=== PATIENT | male | born 1960 | race Caucasian/White ===

== ENCOUNTER → 2020-08-03 12:47 | Outpatient (REF) | payer OTHER, SELFPAY ==
--- NOTE | 2020-08-03 12:51 | CA_ITS ---
Transthoracic Echocardiogram Patient (Last, First, Middle): Jaskaran Finn, Gender: Male Date of : 1960 Age: 59 Procedure Date: 08/03/2020 Procedure Type: Transthoracic Echocardiogram Location: OP Height: 182.88 cm Weight: 133.81 kg BSA: 2.51 m2 Heart Rate: bpm BP: 120 / 65 mmHg Special Delivery Messenger: JOHNNIE Howard MD: Scar Araiza [facility] Senior Bi Architect: Jc Brito MD Symptoms: R01.1 - Cardiac murmur, unspecified Study Quality: Fair ECG Rhythm: Sinus Conclusions: - Essentially normal study Findings Left Ventricle Normal left ventricular size, thickness, and systolic function. The visually estimated ejection fraction is between 65-70%. Diastolic function is normal for age. Right Ventricle Normal right ventricular cavity size and systolic function. Atria The left atrium is mildly dilated. There is lipomatous hypertrophy of the interatrial septum. Interatrial shunt cannot be excluded. The right atrium is normal in size. Aortic Valve Normal aortic valve structure and function. There is no aortic valve stenosis. There is no aortic valve regurgitation. Mitral Valve Normal mitral valve structure and function. There is trace mitral valve regurgitation. There is no mitral valve stenosis. Pulmonic Valve The pulmonic valve was not well visualized. Tricuspid Valve Likely normal tricuspid valve structure and function. There is trace tricuspid valve regurgitation. The right ventricular systolic pressure is normal. The right ventricular systolic pressure is 29 mmHg. Normal right atrial pressure. There is no evidence of pulmonary hypertension. Great Vessels All visible segments of the aorta are normal in size. The pulmonary artery was not well visualized. Venous The inferior vena cava is normal in size and collapses greater than 50% with inspiration. Pericardium/Pleural There is no evidence of pericardial effusion. Prior Study Comparison No prior study available for comparison. Measurements 2D Linear Measurements IVSd: 1.16 0.6-0.9/0.6-1.0 cm LVIDd: 5.42 3.9-5.3/4.2-5.9 cm LVIDd Index: 2.16 2.4-3.2/2.2-3.1 cm/m2 LVIDs: 3.44 2.0-3.6 cm LVPWd: 1.16 0.7-1.1 cm Ao Root: 3.50 2.1-3.5 cm LA Diam: 4.50 2.7-3.8/3.0-4.0 cm LAIDs Index: 1.79 1.5-2.3 cm/m2 LV Mass: 316.64 67-162/88-224 g LV Mass Index: 126.15 43-95/49-115 g/m2 LVOT Diam: 2.40 3.0+(-)1.3 cm 2D Systolic Function EF 4C: 68.00 >55% EF 2C: 68.60 >55% EF BiP: 68.10 >55% Mitral Valve MV Pk E: 0.77 MV PK A: 0.57 MV Decel Time: 434.00 E/A: 1.40 E'Lateral: 6.20 E'Medial: 7.94 E/E' Med: 9.70 E/E' Lat: 12.40 PHT: 127.00 MVA PHT: 1.73 Decel Arthur: 1.78 Aortic Valve AoV Pk Arun: 1.97 AoV Mn Arun: 1.26 AoV VTI: 0.42 AoV Pk Grad: 16.00 Aov Mn Grad: 7.00 CYNDI Cont.VTI: 3.54 LVOT LVOT Pk Arun: 1.35 LVOT Mn Arun: 0.95 LVOT VTI: 0.33 LVOT Pk Grad: 7.00 LVOT Mn Grad: 4.00 LVOT Diam: 2.40 LVOT Area: 4.52 Diastolic Function MV Pk E: 0.77 MV Pk A: 0.57 E/A: 1.40 E'Medial: 7.94 E/E' Med: 9.70 E' Laterial: 6.20 E/E' Lat: 12.40 Tricuspid Valve TR Pk Arun: 2.31 TR Pk Grad: 21.00 RA Press: 8.00 RVSP: 29.00 Great Vessels Aorta Ao Root-2D: 3.50 2.0-3.7 cm Ao Asc: 3.50 2.1-3.4 cm Ao Arch: 2.90 Updated in Other Vendor System with Status of Final Jc Brito MD electronically signed on 08/04/2020 5:30:09 PM with status of Final
== END ==
LOC: HO.CARD 12:47
PROVIDERS: Visit Provider Nurse Practitioner Family
DX: R01.1 Cardiac murmur, unspecified (principal)
CPT/HCPCS: 93306

== ENCOUNTER 2020-11-17 06:12 | Outpatient (REF) | payer OTHER, SELFPAY ==
[2020-11-17 11:53] LABS: Alanine Aminotransferase 40 U/L (0-40); Albumin Level 4.4 g/dL (3.5-5.0); Alkaline Phosphatase 57 U/L (39-117); Anion Gap 15 (12-20); Aspartate Amino Transferase 41 U/L (5-37); Bilirubin Total 0.6 mg/dL (0.0-1.0); Blood Urea Nitrogen 30 mg/dL (9-16); Calcium 9.4 mg/dL (8.4-10.2); Carbon Dioxide 26 mmol/L (22-29); Chloride 102 mmol/L (96-108); Cholesterol 153 mg/dL; Estimated Glomerular Filt Rate > 60; Glucose Fasting 259 mg/dL (60-99); HDL Cholesterol 30 mg/dL; LDL Cholesterol Calculated 44 mg/dl; Potassium 3.7 mmol/L (3.3-5.1); Sodium 139 mmol/L (135-145); Total Protein 7.7 g/dL (6.5-8.0); Triglycerides 399 mg/dL
[2020-11-17 12:15] LABS: TSH reflex Free T4 2.63 uIU/mL (0.32-4.0)
[2020-11-17 12:28] LABS: Creatinine Urine 162.88 mg/dL; Microalbum/Creatinine Ratio Ur 33.1 ug/mg cr
[2020-11-17 12:48] LABS: Prostate Specific Antigen Scr 0.29 ng/mL (<0.05-4.0)
== END 2020-11-17 06:13 | disposition home or self-care (01) ==
LOC: HO.HMGCLDS 06:12
PROVIDERS: PCP Nurse Practitioner Family; Visit Provider Nurse Practitioner Family
DX: Z00.00 Encounter for general adult medical examination without abnormal findings (principal); Z12.5 Encounter for screening for malignant neoplasm of prostate; E11.9 Type 2 diabetes mellitus without complications
CPT/HCPCS: 36415; 80053; 80061; 82043; 84153; 84443

== ENCOUNTER 2021-08-14 06:23 | Outpatient (REF) | payer SELFPAY ==
[2021-08-14 13:00] LABS: Total Volume 24 Hour Urine 2025 mL
[2021-08-14 13:02] LABS: Creatinine, 24Hr Urine 1.7 G/Day (1.0-2.0); Creatinine, mg/dL 84.52; Protein 24 Hr Urine 223 mg/Day (<150); Protein mg/dL 11 mg/dL
== END 2021-08-14 06:24 | disposition home or self-care (01) ==
LOC: HO.HMGCLNP 06:23
PROVIDERS: Visit Provider Internal Medicine Nephrology
DX: R80.9 Proteinuria, unspecified (principal); I10 Essential (primary) hypertension
CPT/HCPCS: 84156

== ENCOUNTER → 2022-10-10 08:37 | Outpatient (BNVA) | payer OTHER, SELFPAY | PROVIDERS: PCP Nurse Practitioner Family; Referring Provider Nurse Practitioner Family; Visit Provider Internal Medicine ==

== ENCOUNTER → 2022-10-11 07:51 | Outpatient (REF) | payer OTHER, SELFPAY ==
--- NOTE | 2022-10-11 07:56 | CA_ITS ---
Acquisition Time: 2022-10-11 08:01:50 Total Exercise Time: 00:03:40 Test Indications: Abnormal ECG BRADYCARDIA Medications: SEE H Protocol: LUZ Max HR: 083 BPM 52% of Pred: 158 BPM Max BP: 124/066 mmHG Max Work Load: 5.4 METS Exercise stress test with exercise 3 min 40 sec of Luz protocol, achieving 53% MPHR ( baseline heart rate 44b/min, 27% MPHR) with request to stop due to arm and leg fatigue, with mild sob, no chest discomfort, without arrythmia, with normotensive response to exercise, unable to fully assess chronotropic competence due to short exercise time, with nondiagnostic EKG for ischemia. Test reviewed with Dr Key Referred By: Jimmy Cano Overread By: NICKO RICHMOND
== END ==
LOC: HO.CARD 07:51
PROVIDERS: PCP Nurse Practitioner Family; Visit Provider Internal Medicine
DX: R00.1 Bradycardia, unspecified (principal)
CPT/HCPCS: 93017

== ENCOUNTER 2022-10-26 07:11 | Outpatient (REF) | payer OTHER, SELFPAY ==
[2022-10-26 11:08] LABS: MANUAL DIFF FLAG NO
[2022-10-26 11:12] LABS: Appearance Urine Clear; Color Urine Yellow; Glucose Urine UA 100 mg/dL (Negative); Leukocyte Esterase Urine Negative (Negative); Nitrite Urine Negative (Negative); Urine Blood Negative (Negative); Urine Ketones Negative (Negative); Urine Protein Negative (Neg-Trace)
[2022-10-26 11:14] LABS: Basophils Absolute Auto 0.1 X10*3/uL (0.0-0.2); Basophils Percent Auto 0.6 % (0-2); Eosinophils Absolute Auto 0.6 X10*3/uL (0.0-0.4); Eosinophils Percent Auto 6.5 % (0-4); Hematocrit 40.9 % (42.0-52.0); Imm Gran Abs Auto 0.02 X10*3/uL (0.00-0.03); Imm Gran Pct Auto 0.2 % (0.0-0.4); Lymphocytes Absolute Auto 3.1 X10*3/uL (1.2-4.9); Lymphocytes Percent Auto 32.2 % (20-40); Mean Corpuscular HGB Conc 34.2 g/dl (31.0-36.0); Mean Corpuscular Hemoglobin 32.2 pg (27.0-33.0); Mean Platelet Volume 11.2 fL (9.4-12.4); Monocytes Absolute Auto 0.7 X10*3/uL (0.1-1.2); Monocytes Percent Auto 7.2 % (2-11); Neutrophils Absolute Auto 5.1 x10*3/uL (2.0-8.3); Neutrophils Percent Auto 53.3 % (45-73); Platelet Count 271 X10*3/uL (160-400); Red Blood Count 4.35 X10*6/uL (4.60-5.80); Red Cell Distribution Width 12.6 % (11.0-16.0); White Blood Count 9.6 X10*3/uL (4.8-10.8)
[2022-10-26 11:34] LABS: Microalbum/Creatinine Ratio Ur 55.8 ug/mg cr
[2022-10-26 11:37] LABS: Alanine Aminotransferase 27 U/L (0-40); Albumin Level 4.1 g/dL (3.5-5.0); Alkaline Phosphatase 52 U/L (39-117); Anion Gap 13 (12-20); Aspartate Amino Transferase 25 U/L (5-37); Bilirubin Total 0.5 mg/dL (0.0-1.0); Blood Urea Nitrogen 19 mg/dL (9-16); Calcium 9.5 mg/dL (8.4-10.2); Carbon Dioxide 27 mmol/L (22-29); Chloride 104 mmol/L (96-108); Cholesterol 116 mg/dL; Estimated Glomerular Filt Rate > 60; Glucose Fasting 61 mg/dL (60-99); Glucose Random 61 mg/dL (60-115); HDL Cholesterol 28 mg/dL; LDL Cholesterol Calculated 30 mg/dl; Potassium 3.4 mmol/L (3.3-5.1); Sodium 141 mmol/L (135-145); Total Protein 6.9 g/dL (6.5-8.0); Triglycerides 293 mg/dL
[2022-10-26 11:54] LABS: TSH reflex Free T4 1.83 uIU/mL (0.32-4.0)
== END 2022-10-26 07:12 | disposition home or self-care (01) ==
LOC: HO.HMGCLDS 07:11
PROVIDERS: PCP Nurse Practitioner Family; Visit Provider Internal Medicine
DX: Z01.818 Encounter for other preprocedural examination (principal); E11.9 Type 2 diabetes mellitus without complications; R06.02 Shortness of breath
CPT/HCPCS: 36415; 80048; 80053; 80061; 81003; 82043; 84443; 85025

== ENCOUNTER → 2022-12-13 14:08 | Outpatient (BNVA) | payer OTHER, SELFPAY | PROVIDERS: PCP Nurse Practitioner Family; Visit Provider Nurse Practitioner Family ==

== ENCOUNTER 2023-02-19 07:49 | Outpatient (REF) | payer OTHER, SELFPAY ==
[2023-02-19 11:51] LABS: Appearance Urine Clear; Color Urine Yellow; Glucose Urine UA Negative (Negative); Leukocyte Esterase Urine Trace (Negative); Nitrite Urine Negative (Negative); PH 5.5 (5.0-9.0); Specific Gravity - Urine 1.015 (1.005-1.025); UMIC TRIGGER UACC YES; Urine Blood Negative (Negative); Urine Ketones Negative (Negative); Urine Protein Negative (Neg-Trace)
[2023-02-19 11:55] LABS: Bacteria Urine None Seen (None Seen); Hyaline Casts Urine 0-2 /LPF (0-2); RBC Urine 0-2 /HPF (0-2); Squamous Epithelial Cell Urine 0-2 /HPF (0-2); WBC Urine 0-5 /HPF (0-5)
[2023-02-19 12:45] LABS: Cholesterol 110 mg/dL (<200); HDL Cholesterol 35 mg/dL (>40); LDL Cholesterol Calculated 55 mg/dL (<100); Triglycerides 101 mg/dL (<150)
== END 2023-02-19 07:50 | disposition home or self-care (01) ==
LOC: HO.HMGCLDS 07:49
PROVIDERS: PCP Nurse Practitioner Family; Visit Provider Nurse Practitioner Family
DX: E78.1 Pure hyperglyceridemia (principal)
CPT/HCPCS: 36415; 80061; 81001

== ENCOUNTER 2023-05-21 08:17 | Outpatient (AMB) | payer OTHER, SELFPAY ==
--- NOTE | 2023-05-21 08:23 | MHC.PC.OV ---
Vital Signs 05/21/23 08:25 Weight 254 lb BP 120/72 Blood Pressure Location Rt brachial Position Sitting Pulse 53 Pulse Source Pulse Oximeter Pulse Oximetry (%) 97 Oxygen Delivery Method Room Air Intake Visit Reasons: 6 Month follow up DM Allergies codeine Allergy (Unknown, Verified 05/21/23 08:57) unknown naproxen Allergy (Unknown, Verified 05/21/23 08:57) rash, itching Medication List - Last Reconciled 05/21/23 by JANETH Vargas alcohol swabs (Alcohol Prep Pads) 1 pad topically; aspirin 81 mg PO DAILY atenolol-chlorthalidone 50-25 mg 1 tab PO DAILY atorvastatin 20 mg PO BEDTIME FreeStyle Lancets (lancets) TID testing NS FreeStyle Lite Meter (blood-glucose meter) Tid testing NS FreeStyle Lite Strips (blood sugar diagnostic) TId testing NS glipizide 10 mg PO BID Jardiance (empagliflozin) 10 mg PO DAILY NS lisinopril 40 mg PO DAILY nifedipine ER 60 mg PO BID omega-3 acid ethyl esters 2 caps PO BID trazodone 50 mg PO BEDTIME Tobacco use date assessed: 11/19/22 HPI 6 Month follow up DM HPI Details Pt is a diabetic, on an ASAD and a statin. A1C in office today is . Microalbumin is up to date. Denies polyuria, polydipsia, and neuropathy. Pt denies any signs and symptoms of hypoglycemia and does know how to correct it. Eye exam is up to date. Pt reports that his blood sugar in the morning is in the 70s-90s and at night is in the 130s. Will stop metformin. Due for PSA, will order. Denies dribbling with urination, weak stream, and frequent nocturia. Refuses pneumonia and flu vaccines. [facility] Medical History Morbid obesity Essential hypertension Surgical History Hx of cataract surgery History of carpal tunnel surgery H/O colonoscopy with polypectomy Family History Father Colon cancer Asthma Throat cancer Skin cancer Mother HTN (hypertension) Stroke Diabetes mellitus Sister No problems noted. Sister No problems noted. Social History Housing: House Alcohol intake: current Alcohol intake frequency: holidays/special occasions only Patient Tobacco Use Status: Current everyday Tobacco user Tobacco use type: Cigarette Cigarettes Per Day: 3 e-Cigarette/Vaping Use: Never Used Second Hand Smoke Exposure: No service: No 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al status: employed 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 [employer] 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al exposures/hazards: No Cognitive needs: No Hearing needs: No Vision needs: No Questionnaire Thrive Questionnaire Date Thrive assessed: 08/14/22 ERASMO-7 AMB Questionnaire ERASMO-7 Date ERASMO - 7 assessed: 08/14/22 Source: Developed by Drs. Ben Monroe, Paulina Carballo, Rm Broussard and colleagues, with an educational daryl from [employer]. Review of Systems Const Reports as per HPI Physical exam (Primary Care) Vital Signs: Last Vital Signs Pulse 53 05/21/23 08:25 BP 120/72 05/21/23 08:25 Pulse Ox 97 05/21/23 08:25 Oxygen Delivery Method Room Air 05/21/23 08:25 Tobacco/Smoking Status: Tobacco use Status Tobacco use date assessed 11/19/22 05/21/23 08:27 Patient Tobacco Use Status Current everyday Tobacco 05/21/23 08:27 Tobacco use type Cigarette 05/21/23 08:27 e-Cigarette/Vaping Use Never Used 05/21/23 08:27 Thrive Assessment: Date of Thrive Assessment Date Thrive assessed 08/14/22 05/21/23 08:27 Const General: cooperative Orientation/consciousness: patient oriented x3 Resp Effort & Inspection: normal respiratory effort Auscultation: clear to auscultation bilaterally Cardio Rate: regular rate Rhythm: regular rhythm Heart sounds: S1 normal heart sound present and S2 normal heart sound present Neuro General: patient oriented x3 Extrem Other: feet intact, onychomycosis noted, especially to big toe nails. + sensation Psych Appearance: grossly normal Mental Status: mental status grossly normal Speech and movement: Normal speech and movement present Affect: normal affect Attitude: cooperative Thought process: Normal thought process present Thought content: Normal thought content present Insight: Good insight present (Psych) Judgement: Good judgement present (Psych) Results AMB Hemoglobin A1c AMB Hemoglobin A1c 4.6 % Last Edit by ORLANDO Chery on 05/21/23 09:12 Assessment and Plan Assessment & Plan (1) Diabetes: Code(s): E11.9 - Type 2 diabetes mellitus without complications Plan: Labs ordered (2) Screening PSA (prostate specific antigen): Code(s): Z12.5 - Encounter for screening for malignant neoplasm of prostate Plan The patient agreed to the use of a medical record specialist for this encounter. Scribed for SANDEE Ta- by Carie Pantoja medical record specialist, on 05/21/2023 at 08:50 EST. Orders: Orders Prostate Specific Antigen Scr Today Z12.5 - Encounter for screening for malignant neoplasm of prostate TSH reflex Free T4 Today E11.9 - Type 2 diabetes mellitus without complications AMB Hemoglobin A1c Today Z13.9 - Encounter for screening, unspecified Complete Blood Count Auto Diff Today E11.9 - Type 2 diabetes mellitus without complications Comprehensive [place]. Panel Fast Today E11.9 - Type 2 diabetes mellitus without complications UA CC w/rflx Micro + Cult Today E11.9 - Type 2 diabetes mellitus without complications Lipid Panel Today E11.9 - Type 2 diabetes mellitus without complications Coding Level of Care Code Est Pt Level 3 (90326) Diagnoses Diabetes E11.9 Screening PSA (prostate specific antigen) Z12.5
[2023-05-21 08:25] VITALS: BP 120/72; PULSE 53; O2SAT 97
== END 2023-05-21 09:33 | disposition home or self-care (01) ==
PROVIDERS: PCP Nurse Practitioner Family; Visit Provider Nurse Practitioner Family
DX: E11.9 Type 2 diabetes mellitus without complications (principal); Z12.5 Encounter for screening for malignant neoplasm of prostate
CPT/HCPCS: 83036; 99213

== ENCOUNTER 2023-06-18 14:49 | Outpatient (AMB) | payer OTHER, SELFPAY ==
--- NOTE | 2023-06-18 15:13 | MHC.OFFVIS ---
Intake Vital Signs 06/18/23 15:14 Height 5 ft 11 in Weight 260 lb 2.327 oz BMI 36.3 BP 108/54 L Blood Pressure Location Lt brachial Position Sitting Pulse 52 Intake Visit Reasons: 6 month follow-up Intake Note: 6 month follow up Director Environmental Required: No Accompanied by: Self / Same As Patient Allergies codeine Allergy (Unknown, Verified 06/18/23 15:14) unknown naproxen Allergy (Unknown, Verified 06/18/23 15:14) rash, itching Medication List - Last Reconciled 06/18/23 by Jimmy Cano MD alcohol swabs (Alcohol Prep Pads) 1 pad topically; aspirin 81 mg PO DAILY atenolol-chlorthalidone 50-25 mg 1 tab PO DAILY atorvastatin 20 mg PO BEDTIME FreeStyle Lancets (lancets) TID testing NS FreeStyle Lite Meter (blood-glucose meter) Tid testing NS FreeStyle Lite Strips (blood sugar diagnostic) TId testing NS glipizide 10 mg PO BID Jardiance (empagliflozin) 10 mg PO DAILY NS lisinopril 40 mg PO DAILY nifedipine ER 60 mg PO BID omega-3 acid ethyl esters 2 caps PO BID trazodone 50 mg PO BEDTIME HPI HPI Comments History of Present Illness Details Jaskaran returns for follow-up. In the past, he was seen regarding bradycardia. He does not really have any clear-cut cardiac symptoms like angina or shortness of breath or in fact anything cardiac sounding. Around 2007 or so, it seems that he underwent some procedure and possibly ablation but there is no details available and he cannot remember. Otherwise, he has morbid obesity. He apparently weighed much more and was able to lose significant amount of weight by lifestyle changes. Has diabetes and hypertension. On appropriate medications. Also has obstructive sleep apnea on BiPAP. Within limits of his activity, he has got absolutely no cardiac symptoms like angina or shortness of breath or dizzy spells or syncopal episodes or in fact anything cardiac sounding at all. He states he is fairly active without any major limitations. He underwent a stress test and had chronotropic incompetence. After that, clonidine has been stopped. He does not see a major difference but he feels as though he is somewhat better off without clonidine. [facility] Medical History Morbid obesity Essential hypertension Surgical History Hx of cataract surgery History of carpal tunnel surgery H/O colonoscopy with polypectomy Family History Father Colon cancer Asthma Throat cancer Skin cancer Mother HTN (hypertension) Stroke Diabetes mellitus Sister No problems noted. Sister No problems noted. Social History Housing: House Alcohol intake: current Alcohol intake frequency: holidays/special occasions only Patient Tobacco Use Status: Current everyday Tobacco user Tobacco use type: Cigarette Cigarettes Per Day: 3 e-Cigarette/Vaping Use: Never Used Second Hand Smoke Exposure: No service: No 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al status: employed 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 [employer] 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al exposures/hazards: No Cognitive needs: No Hearing needs: No Vision needs: No Review of Systems Const Denies weakness ENT Denies dizziness Card Denies chest pain, Denies chest pain with activity, Denies syncope, Denies rapid heart rate, Denies pedal edema, Denies edema, Denies leg edema, Denies lightheadedness, Denies palpitations, Denies dyspnea, Denies dyspnea on exertion and Denies orthopnea Resp Denies cough, Denies dyspnea and Denies dyspnea on exertion GI Denies hematochezia and Denies change in stool character Musc Denies abnormal gait, Denies muscle cramps, Denies muscle weakness, Reports numbness, Denies radiating pain into limb and Denies tingling Neuro Denies abnormal gait, Denies dizziness, Denies syncope, Reports numbness, Denies tingling and Denies weakness Endo Denies palpitations Physical Exam Vital Signs: Last Vital Signs Pulse 52 06/18/23 15:14 BP 108/54 L 06/18/23 15:14 BMI result Body Mass Index 36.3 Const General: comfortable and no acute distress Orientation/consciousness: patient oriented x3 HEENT Other: Unremarkable Head: Yes normal to inspection Neck Neck: Yes normal visual inspection Chest Chest palpation & inspection: normal inspection of the chest Resp Auscultation: clear to auscultation bilaterally Cardio Palpation: normal PMI Heart sounds: S1 normal heart sound present, S2 normal heart sound present, no gallops, no murmurs and no rubs GI Palpation (GI): Soft to palpation Back/Spine/Pelvis Other: unremarkable Skin General skin exam: no rashes or lesions noted Neuro General: patient oriented x3 Extrem General: Yes normal to inspection Psych Mental Status: mental status grossly normal Assessment & Plan Assessment & Plan (1) Sinus bradycardia: Code(s): R00.1 - Bradycardia, unspecified (2) Diabetes: Code(s): E11.9 - Type 2 diabetes mellitus without complications (3) Essential hypertension: Code(s): I10 - Essential (primary) hypertension (4) JAVIER (obstructive sleep apnea): Code(s): G47.33 - Obstructive sleep apnea (adult) (pediatric) (5) Morbid obesity: Code(s): E66.01 - Morbid (severe) obesity due to excess calories (6) Coronary artery disease: Code(s): I25.10 - Atherosclerotic heart disease of [place] coronary artery without angina pectoris Plan Cardiac studies reviewed. EKG with sinus bradycardia, 44/Min; sinus arrhythmia, possible borderline SC prolongation, PAC. Echocardiogram with LVEF of 65-70% and otherwise unremarkable. In the stress test, he was able to exercise on Pankaj protocol for only 3 minutes and 40 seconds. Reached 53% of target heart rate and stopped due to fatigue. Subsequently, stopped clonidine. Coronary CT-essentially [id number] CAD and nothing hemodynamically significant. 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 Additionally, myocardial bridging in 1st and 3rd diagonal branches but no significant obstruction. Overall, he has got numerous cardiovascular risk factors and some CAD but nothing hemodynamically significant. Aggressive risk factor modification only including management of weight, diabetes, hypertension dyslipidemia. With regard to the bradycardia issue, he is off the clonidine. He is not reporting any symptoms at this time. We will schedule follow-up in 1 year. In the interim, to call with concerns. Coding Level of Care Code Est Pt Level 4 (68656) Diagnoses Sinus bradycardia R00.1 Diabetes E11.9 Essential hypertension I10 JAVIER (obstructive sleep apnea) G47.33 Morbid obesity E66.01 Coronary artery disease I25.10
[2023-06-18 15:14] VITALS: BP 108/54; PULSE 52; BMI 36.3
== END 2023-06-18 15:28 | disposition home or self-care (01) ==
PROVIDERS: PCP Nurse Practitioner Family; Visit Provider Internal Medicine
DX: R00.1 Bradycardia, unspecified (principal); E11.9 Type 2 diabetes mellitus without complications; I10 Essential (primary) hypertension; G47.33 Obstructive sleep apnea (adult) (pediatric); E66.01 Morbid (severe) obesity due to excess calories; I25.10 Atherosclerotic heart disease of native coronary artery without angina pectoris
CPT/HCPCS: 99214

== ENCOUNTER → 2023-06-18 14:49 | Outpatient (BNVA) | payer OTHER, SELFPAY | PROVIDERS: PCP Nurse Practitioner Family; Visit Provider Internal Medicine ==

== ENCOUNTER 2023-06-24 07:48 | Outpatient (AMB) | payer OTHER, SELFPAY ==
--- NOTE | 2023-06-24 07:18 | MHC.PC.OV ---
Intake Visit Reasons: Depression Allergies codeine Allergy (Unknown, Verified 06/18/23 15:14) unknown naproxen Allergy (Unknown, Verified 06/18/23 15:14) rash, itching Medication List - Last Reconciled 06/24/23 by Scar Araiza [facility] alcohol swabs (Alcohol Prep Pads) 1 pad topically; aspirin 81 mg PO DAILY atenolol-chlorthalidone 50-25 mg 1 tab PO DAILY atorvastatin 20 mg PO BEDTIME FreeStyle Lancets (lancets) TID testing NS FreeStyle Lite Meter (blood-glucose meter) Tid testing NS FreeStyle Lite Strips (blood sugar diagnostic) TId testing NS glipizide 10 mg PO BID Jardiance (empagliflozin) 10 mg PO DAILY NS lisinopril 40 mg PO DAILY nifedipine ER 60 mg PO BID omega-3 acid ethyl esters 2 caps PO BID sertraline 50 mg PO DAILY trazodone 50 mg PO BEDTIME Tobacco use date assessed: 11/19/22 HPI Depression HPI Details Pt c/o increased depression. He is interested in trying a medication for this. Will start sertraline 50mg. Will have team reach out to pt regarding a therapist. Denies any SI and HI. [facility] Medical History Morbid obesity Essential hypertension Surgical History Hx of cataract surgery History of carpal tunnel surgery H/O colonoscopy with polypectomy Family History Father Colon cancer Asthma Throat cancer Skin cancer Mother HTN (hypertension) Stroke Diabetes mellitus Sister No problems noted. Sister No problems noted. Social History Housing: House Alcohol intake: current Alcohol intake frequency: holidays/special occasions only Patient Tobacco Use Status: Current everyday Tobacco user Tobacco use type: Cigarette Cigarettes Per Day: 3 e-Cigarette/Vaping Use: Never Used Second Hand Smoke Exposure: No service: No 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al status: employed 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 [employer] 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al exposures/hazards: No Cognitive needs: No Hearing needs: No Vision needs: No Questionnaire Thrive Questionnaire Date Thrive assessed: 08/14/22 ERASMO-7 AMB Questionnaire ERASMO-7 Date ERASMO - 7 assessed: 08/14/22 Source: Developed by Drs. Ben Monroe, Paulina Carballo, Rm Broussard and colleagues, with an educational daryl from [employer] Review of Systems Const Reports as per HPI Physical exam (Primary Care) Tobacco/Smoking Status: Tobacco use Status Tobacco use date assessed 11/19/22 06/24/23 07:19 Patient Tobacco Use Status Current everyday Tobacco 06/24/23 07:19 Tobacco use type Cigarette 06/24/23 07:19 e-Cigarette/Vaping Use Never Used 06/24/23 07:19 Thrive Assessment: Date of Thrive Assessment Date Thrive assessed 08/14/22 06/24/23 07:19 Const General: cooperative Orientation/consciousness: patient oriented x3 Neuro General: patient oriented x3 Psych Appearance: grossly normal Mental Status: mental status grossly normal Speech and movement: Clear speech present Affect: normal affect Attitude: cooperative Thought process: Normal thought process present Thought content: Normal thought content present Insight: Good insight present (Psych) Judgement: Good judgement present (Psych) Telehealth Telehealth Location of provider rendering services: practice address Location of patient: address on file Patient Identification confirmed using: Name, : Yes Telehealth method: video Patient verbally consented to treatment: Yes Patient verbally consented to billing insurance company: Yes Patient informed of any privacy concerns related to visit: Yes Minutes spent on Phone/Video with Pt.: 10 Assessment and Plan Assessment & Plan (1) Depression: Code(s): F32.A - Depression, unspecified Plan: Starting sertraline 50mg Plan The patient agreed to the use of a medical receptionist medical assistant for this encounter. Scribed for JANETH Ta by Carie Pantoja medical receptionist medical assistant, on 06/24/2023 at 07:15 EST. Medications: New sertraline 50 mg PO DAILY 90 tabs 0RF Coding Level of Care Code Tele Est Pt Level 3 (15350) Diagnoses Depression F32.A
== END 2023-06-24 07:50 | disposition home or self-care (01) ==
LOC: HO.HMGC 07:48
PROVIDERS: PCP Nurse Practitioner Family; Visit Provider Nurse Practitioner Family
DX: F32.A Depression, unspecified (principal)
CPT/HCPCS: 99213

== ENCOUNTER 2023-09-19 06:20 | Outpatient (REF) | payer OTHER, SELFPAY ==
[2023-09-19 10:38] LABS: MANUAL DIFF FLAG NO
[2023-09-19 10:45] LABS: Basophils Absolute Auto 0.1 X10*3/uL (0.0-0.2); Basophils Percent Auto 0.8 % (0-2); Eosinophils Absolute Auto 0.7 X10*3/uL (0.0-0.4); Eosinophils Percent Auto 7.9 % (0-4); Hematocrit 43.5 % (42.0-52.0); Hemoglobin 14.8 g/dl (14.0-18.0); Imm Gran Abs Auto 0.01 X10*3/uL (0.00-0.03); Imm Gran Pct Auto 0.1 % (0.0-0.4); Lymphocytes Absolute Auto 2.4 X10*3/uL (1.2-4.9); Lymphocytes Percent Auto 27.6 % (20-40); Mean Corpuscular Hemoglobin 32.6 pg (27.0-33.0); Mean Corpuscular Volume 95.8 fL (80.0-98.0); Monocytes Absolute Auto 0.6 X10*3/uL (0.1-1.2); Neutrophils Absolute Auto 4.9 x10*3/uL (2.0-8.3); Neutrophils Percent Auto 56.6 % (45-73); Platelet Count 272 X10*3/uL (160-400); Red Blood Count 4.54 X10*6/uL (4.60-5.80); White Blood Count 8.6 X10*3/uL (4.8-10.8)
[2023-09-19 10:57] LABS: Appearance Urine Clear; Color Urine Yellow; Glucose Urine UA 250 mg/dL (Negative); Leukocyte Esterase Urine Negative (Negative); Nitrite Urine Negative (Negative); PH 5.5 (5.0-9.0); Specific Gravity - Urine 1.015 (1.005-1.025); Urine Blood Negative (Negative); Urine Ketones Negative (Negative); Urine Protein Negative (Neg-Trace)
[2023-09-19 11:15] LABS: Prostate Specific Antigen Scr 0.48 ng/mL (<0.05-4.0)
[2023-09-19 11:28] LABS: Alanine Aminotransferase 25 U/L (0-40); Albumin Level 4.1 g/dL (3.5-5.0); Alkaline Phosphatase 61 U/L (39-117); Anion Gap 12 (12-20); Aspartate Amino Transferase 24 U/L (5-37); Bilirubin Total 0.7 mg/dL (0.0-1.0); Blood Urea Nitrogen 19 mg/dL (9-16); Calcium 9.7 mg/dL (8.4-10.2); Carbon Dioxide 30 mmol/L (22-29); Chloride 105 mmol/L (96-108); Cholesterol 126 mg/dL (<200); Estimated Glomerular Filt Rate > 60; Glucose Fasting 100 mg/dL (60-99); HDL Cholesterol 36 mg/dL (>40); LDL Cholesterol Calculated 72 mg/dL (<100); Potassium 4.1 mmol/L (3.3-5.1); Sodium 143 mmol/L (135-145); Total Protein 7.5 g/dL (6.5-8.0); Triglycerides 92 mg/dL (<150)
[2023-09-19 11:51] LABS: TSH reflex Free T4 1.59 uIU/mL (0.32-4.0)
== END 2023-09-19 06:21 | disposition home or self-care (01) ==
LOC: HO.HMGCLDS 06:20
PROVIDERS: PCP Nurse Practitioner Family; Visit Provider Nurse Practitioner Family
DX: Z12.5 Encounter for screening for malignant neoplasm of prostate (principal); E11.9 Type 2 diabetes mellitus without complications
CPT/HCPCS: 36415; 80053; 80061; 81003; 84153; 84443; 85025

== ENCOUNTER 2023-09-23 07:41 | Outpatient (AMB) | payer OTHER, SELFPAY ==
--- NOTE | 2023-09-23 08:03 | A.OFFPC_ITS ---
Vital Signs 09/23/23 08:07 Height 5 ft 11 in Weight 252 lb BMI 35.1 BP 108/60 Blood Pressure Location Rt brachial Position Sitting Pulse 46 L Pulse Source Pulse Oximeter Pulse Oximetry (%) 95 Oxygen Delivery Method Room Air Intake Visit Reasons: Annual PE Intake Note: Patient here for physical exam. Has not had colonoscopy done. 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- alcohol swabs (Alcohol Prep Pads) 1 pad topically; aspirin 81 mg PO DAILY atenolol-chlorthalidone 50-25 mg 1 tab PO DAILY atorvastatin 20 mg PO BEDTIME FreeStyle Lancets (lancets) TID testing NS FreeStyle Lite Meter (blood-glucose meter) Tid testing NS FreeStyle Lite Strips (blood sugar diagnostic) TId testing NS glipizide 10 mg PO DAILY Jardiance (empagliflozin) 10 mg PO DAILY NS lisinopril 40 mg PO DAILY nifedipine ER 60 mg PO BID omega-3 acid ethyl esters 2 caps PO BID sertraline 50 mg PO DAILY trazodone 50 mg PO BEDTIME Tobacco use date assessed: 09/23/23 Dental Screening Dental Screen Date: 09/23/23 Did you have a dental visit in the last 12 months?: Yes Did you have a dental problem in the last 6 months where you did not have access to dental care?: No Was dental information given to patient?: Patient has dentist HPI Annual PE HPI Details Pt is here for a PE. Labs were already performed. Due for colon screen in February, will refer to GI. PSA is up to date. Denies dribbling with urination, weak stream, and frequent nocturia. Pt is a diabetic, on an ASAD and a statin, A1C in office today is 5.3. Due for microalbumin in the near future, will order. Deneis polyuria, polydipsia, and neuropathy. Pt denies any signs and symptoms of hypoglycemia and does know how to correct it. Will stop glipizide d ue to stable A1C. Pt has been working on his diet and losing weight. He reports feeling good. Pt has a hx of sleep apnea and uses a bipap machine. He would like to stop this because he has lost weight. Will refer for sleep study. Pt follows up with renal and cardiology. Refuses pneumonia vaccine. [facility] Medical History Morbid obesity Essential hypertension Surgical History Hx of cataract surgery History of carpal tunnel surgery H/O colonoscopy with polypectomy Family History Father Colon cancer Asthma Throat cancer Skin cancer Mother HTN (hypertension) Stroke Diabetes mellitus Sister No problems noted. Sister No problems noted. Social History Housing: House Alcohol intake: current Alcohol intake frequency: holidays/special occasions only Patient Tobacco Use Status: Current everyday Tobacco user Tobacco use type: Cigarette Cigarettes Per Day: 3 e-Cigarette/Vaping Use: Never Used Second Hand Smoke Exposure: No service: No 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al status: employed 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 [employer] 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al exposures/hazards: No Cognitive needs: No Hearing needs: No Vision needs: No Questionnaire PHQ-9 Over the last 2 weeks, how often have you been bothered by any of the following problems? 1. Little interest or pleasure in doing things: not at all 2. Feeling down, depressed, or hopeless: not at all 3. Trouble falling or staying asleep, or sleeping too much: not at all 4. Feeling tired or having little energy: not at all 5. Poor appetite or overeating: not at all 6. Feeling bad about yourself - or that you are a failure or have let yourself or your family down: not at all 7. Trouble concentrating on things, such as reading the newspaper or watching television: not at all 8. Moving or speaking so slowly that other people could have noticed. Or the opposite - being so fidgety or restless that you have been moving around a lot more than usual: not at all 9. Thoughts that you would be better off or of hurting yourself in some way: not at all Total score: 0 Depression Screening Interpretation: Negative Depression Screening Done: Yes 06689 - PHQ-9 Billing: Yes Source: Developed by Drs. Ben Monroe, Paulina Carballo, Rm Broussard and colleagues, with an educational daryl from [employer]. Thrive Questionnaire Date Thrive assessed: 09/23/23 I am a: Patient What is your living situation today?: I have a steady place to live Within the past 12 months, did the food you bought not last and you didn't have the money to get more?: Never true Within the past 12 months, did you worry whether your food would run out before you got money to buy more?: Never true Do you have trouble paying for medicines?: No Do you have trouble getting transportation to medical appointments?: No Do you have trouble paying your heating and electricity bill?: No Do you have trouble taking care of your child, family member or friend?: No Do you have trouble with day-to-day activities such as bathing, preparing meals, shopping, managing finances, etc.?: No Are you currently unemployed and looking for a job?: No Are you interested in more education?: No Currently or been in a relationship where the following occur: I choose not to answer this question THRIVE Score: 0 AUDIT C Alcohol Use Questionnaire (AUDIT-C) 1. How often do you have a drink containing alcohol?: Monthly or less 2. How many drinks containing alcohol do you have on a typical day when you are drinking?: 1 or 2 3. How often do you have six or more drinks on one occasion?: Never Total Score: 1 Score Reviewed/Action Taken: No ERASMO-7 AMB Questionnaire ERASMO-7 Date ERASMO - 7 assessed: 09/23/23 Feeling nervous, anxious, or on edge: 1 = Several days Not being able to stop or control worryin = Several days Worrying too much about different things: 1 = Several days Trouble relaxin = Several days Being so restless that it is hard to sit still: 1 = Several days Becoming easily annoyed or irritable: 1 = Several days Feeling afraid as if something awful might happen: 0 = Not at all Total ERASMO-7 score (0-4 normal; 5-9 mild; 10-14 moderate; 15-21 severe): 6 Source: Developed by Drs. Ben Monroe, Paulina Carballo, Rm Broussard and colleagues, with an educational daryl from [employer]. ERASMO-7 Assessment Billing ERASMO-7 Assessment Tool: ERASMO-7 Assessment 11776 Review of Systems Const Denies chills and Denies fever(s) Eyes Denies blurry vision ENT Denies vertigo, Denies dizziness and Denies sore throat Card Denies chest pain at rest, Denies chest pain with activity, Denies diaphoresis, Denies dyspnea and Denies dyspnea on exertion Resp Denies cough, Denies dyspnea, Denies dyspnea on exertion and Denies wheezing GI Denies abdominal pain, Denies melena, Denies hematochezia, Denies constipation, Denies diarrhea and Denies loose stools Denies hematuria Musc Denies numbness and Denies tingling Skin/Breast Denies lesions Neuro Denies vertigo, Denies dizziness, Denies numbness and Denies tingling Psych Denies anxiety, Denies depression, Denies homicidal ideation, Denies suicidal ideation and Denies other (substance abuse) Aller/Immun Denies wheezing Physical exam (Primary Care) Vital Signs: Last Vital Signs Pulse 46 L 09/23/23 08:07 BP 108/60 09/23/23 08:07 Pulse Ox 95 09/23/23 08:07 Oxygen Delivery Method Room Air 09/23/23 08:07 BMI result Body Mass Index 35.1 Tobacco/Smoking Status: Tobacco use Status Tobacco use date assessed 09/23/23 09/23/23 08:10 Patient Tobacco Use Status Current everyday Tobacco 09/23/23 08:03 Tobacco use type Cigarette 09/23/23 08:03 e-Cigarette/Vaping Use Never Used 09/23/23 08:03 PHQ-9: PHQ-9 Score PHQ-9: Total score 0 09/23/23 08:37 Depression Screening Interpretation: Negative Thrive Assessment: Date of Thrive Assessment Date Thrive assessed 09/23/23 09/23/23 08:26 Currently or been in a relationship where the following occur: I choose not to answer this question Const General: cooperative Nutritional Appearance: well nourished Orientation/consciousness: patient oriented x3 HENMT Head: Yes normal to inspection, Yes normocephalic and Yes atraumatic Ears: TM's normal bilaterally Eyes General: appearance normal, both eyes and all related structures Alignment and Position: alignment normal and position normal Neck Neck: Yes normal visual inspection and Yes no lymphadenopathy Thyroid: Thyroid normal Resp Effort & Inspection: normal respiratory effort Auscultation: clear to auscultation bilaterally Cardio Rate: regular rate Rhythm: regular rhythm Heart sounds: S1 normal heart sound present, S2 normal heart sound present and no murmurs GI Palpation (GI): Soft to palpation and nontender Auscultation: normal bowel sounds Male General Exam: Yes normal external exam Penis: normal penis Scrotum: scrotum normal, testes descended bilaterally and no inguinal hernias Testes: no testicular mass Skin Other: right cheek with darker slightly raised lesion Rashes: no rashes Neuro General: patient oriented x3, moves all extremities, no focal motor deficits and deep tendon reflexes 2+ bilaterally Romberg Test: Negative Extrem Other: bilat feet: + sensation with use of monofilament, feet intact Psych Appearance: grossly normal Mental Status: mental status grossly normal Speech and movement: Normal speech and movement present Affect: normal affect Attitude: cooperative Thought process: Normal thought process present Thought content: Normal thought content present Insight: Good insight present (Psych) Judgement: Good judgement present (Psych) Results AMB Hemoglobin A1c AMB Hemoglobin A1c 5.3 % Last Edit by ORLANDO Chery on 09/23/23 08 :25 Results Reviewed Results Reviewed: Laboratory Last Values Hgb A1c (Clinic) 5.3 % (4.0-6.0) 09/23/23 08:24 Assessment and Plan Assessment & Plan (1) Physical exam: Code(s): Z00.00 - Encounter for general adult medical examination without abnormal findin gs Plan: Labs already performed (2) Screening for colon cancer: Code(s): Z12.11 - Encounter for screening for malignant neoplasm of colon Plan: Referred to GI (3) Skin lesion: Code(s): L98.9 - Disorder of the skin and subcutaneous tissue, unspecified Plan: Referred to derm (4) JAVIER (obstructive sleep apnea): Code(s): G47.33 - Obstructive sleep apnea (adult) (pediatric) Plan: Referred for sleep study Plan The patient agreed to the use of a medical review coordinator for this encounter. Scribed for JANETH Ta by juliana Sandhu scribe, on 09/23/2023 at 08:25 EST. Orders: Orders UA CC w/rflx Micro + Cult Today Z00.00 - Encounter for general adult medical examination without abnormal findings Microalbumin, Random (w Creat) Today Z00.00 - Encounter for general adult medical examination without abnormal findings AMB Hemoglobin A1c Today Z13.9 - Encounter for screening, unspecified Referrals Gastroenterology Referral Z12.11 - Encounter for screening for malignant neoplasm of colon Dermatology Referral L98.9 - Disorder of the skin and subcutaneous tissue, unspecified Sleep Medicine Referral G47.33 - Obstructive sleep apnea (adult) (pediatric) Coding Level of Care Code Est Pt Prev Care 40-64y(29565) Diagnoses Physical exam Z00.00 Screening for colon cancer Z12.11 Skin lesion L98.9 JAVIER (obstructive sleep apnea) G47.33 Additional Codes ERASMO-7 Assessment Billing - ERASMO-7 Assessment Tool: ERASMO-7 Assessment 57392 ([id number])
[2023-09-23 08:07] VITALS: BP 108/60; PULSE 46; O2SAT 95; BMI 35.1
== END 2023-09-23 09:03 | disposition home or self-care (01) ==
PROVIDERS: PCP Nurse Practitioner Family; Visit Provider Nurse Practitioner Family
DX: Z00.00 Encounter for general adult medical examination without abnormal findings (principal); Z12.11 Encounter for screening for malignant neoplasm of colon; L98.9 Disorder of the skin and subcutaneous tissue, unspecified; G47.33 Obstructive sleep apnea (adult) (pediatric); Z13.9 Encounter for screening, unspecified
CPT/HCPCS: 83036; 99396

== ENCOUNTER 2023-09-23 08:46 | Outpatient (REF) | payer OTHER, SELFPAY ==
[2023-09-23 10:19] LABS: Appearance Urine Clear; Color Urine Yellow; Glucose Urine UA >=1000 mg/dL (Negative); Leukocyte Esterase Urine Negative (Negative); Nitrite Urine Negative (Negative); PH 6.5 (5.0-9.0); Specific Gravity - Urine 1.025 (1.005-1.025); UMIC TRIGGER UACC YES; Urine Blood Negative (Negative); Urine Ketones Negative (Negative); Urine Protein Negative (Neg-Trace)
[2023-09-23 10:23] LABS: Bacteria Urine None Seen (None Seen); Hyaline Casts Urine 0-2 /LPF (0-2); RBC Urine 0-2 /HPF (0-2); Squamous Epithelial Cell Urine 0-2 /HPF (0-2); WBC Urine 0-5 /HPF (0-5)
[2023-09-23 11:02] LABS: Creatinine Urine 130.06 mg/dL; Microalbum/Creatinine Ratio Ur 6.1 ug/mg cr (<30)
== END 2023-09-23 08:47 | disposition home or self-care (01) ==
LOC: HO.HMGCLDS 08:46
PROVIDERS: PCP Nurse Practitioner Family; Visit Provider Nurse Practitioner Family
DX: Z00.00 Encounter for general adult medical examination without abnormal findings (principal)
CPT/HCPCS: 81001; 82043; 82570

== ENCOUNTER 2023-12-31 08:59 | Outpatient (AMB) | payer OTHER, SELFPAY ==
--- NOTE | 2023-12-31 09:22 | A.OFFVIS_ITS ---
Vital Signs 12/31/23 09:23 Height 5 ft 11 in Weight 236 lb 5.369 oz BMI 33.0 BP 122/54 L Blood Pressure Location Rt brachial Position Sitting Pulse 66 Pulse Source Pulse Oximeter Pulse Oximetry (%) 97 Oxygen Delivery Method Room Air Intake Visit Reasons: Colonoscopy Screening Intake Note: Jaskaran presents in office today for a scheduled colo s/p consult CC; Pt reports previous hx of colo s/p approximately 5 years ago. Pt denies any new concerns or sx since their last s/p and confirms the recall nature of this s/p. 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 male here today for pre colonoscopy screening.? Patient was sent to us by his PCP.? Last colonoscopy about 5 years ago or so. Patient denies any gastrointestinal symptoms in the past or at present.? Patient's father was diagnosed with CRC. Patient himself has been going every 5 years for colonoscopies.? Denies history of difficulty with sedation or anesthesia in the past.? History of sleep apnea, using CPAP every night. Patient reports that he will be going to get re-evaluate that and possibly will not need the CPAP anymore. Patient reports that he lost 130 lb. On low-dose aspirin. Denies any history of cardiac, renal, pulmonary, or hepatic disease.?? No history of infectious? diseases like hepatitis A, B, C, HIV or tuberculosis.? PFSH Medical History Morbid obesity Essential hypertension Surgical History Hx of cataract surgery History of carpal tunnel surgery H/O colonoscopy with polypectomy Family History Father Colon cancer Asthma Throat cancer Skin cancer Mother HTN (hypertension) Stroke Diabetes mellitus Sister No problems noted. Sister No problems noted. Social History Housing: House Alcohol intake: current Alcohol intake frequency: holidays/special occasions only Patient Tobacco Use Status: Current everyday Tobacco user Tobacco use type: Cigarette Cigarettes Per Day: 3 e-Cigarette/Vaping Use: Never Used Second Hand Smoke Exposure: No service: No 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al status: employed 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 [employer] 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al exposures/hazards: No Cognitive needs: No Hearing needs: No Vision needs: No Review of Systems Const Denies weight gain and Denies weight loss ENT Reports no additional complaints, Denies dysphagia and Denies odynophagia Card Reports no additional complaints Resp Reports no additional complaints GI Denies abdominal pain, Denies belching, Denies melena, Denies bloating, Denies change in bowel habits, Denies dysphagia, Denies excessive flatus, Denies dyspepsia, Denies heartburn, Denies diarrhea, Denies loose stools, Denies nausea, Denies odynophagia and Denies vomiting Reports no additional complaints Musc Reports no additional complaints Neuro Reports no additional complaints Psych Reports no additional complaints Endo Reports no additional complaints Physical Exam Vital Signs: Last Vital Signs Pulse 66 12/31/23 09:23 BP 122/54 L 12/31/23 09:23 Pulse Ox 97 12/31/23 09:23 Oxygen Delivery Method Room Air 12/31/23 09:23 BMI result Body Mass Index 33.0 Const General: healthy appearing and no acute distress Nutritional Appearance: obese Orientation/consciousness: patient oriented x3 Resp Effort & Inspection: normal respiratory effort, able to speak in complete sentences, no tracheal deviation and symmetric chest movement Auscultation: clear to auscultation bilaterally Cardio Rate: regular rate GI Inspection: Yes normal to inspection, No distended and Yes obesity Palpation (GI): Soft to palpation, not firm, nontender and No hepatosplenomegaly present Auscultation: normal bowel sounds General: Yes no CVA tenderness Back/Spine/Pelvis Back: no CVA tenderness Skin General skin exam: elasticity normal, turgor normal and dry skin Neuro General: patient oriented x3 Psych Appearance: grossly normal Mental Status: mental status grossly normal Assessment & Plan Assessment & Plan (1) Screening for colon cancer: Code(s): Z12.11 - Encounter for screening for malignant neoplasm of colon Category: Medical Plan Patient denies any GI, cardiac or respiratory symptoms.? Denies any issues with anesthesia in the past.? History of sleep apnea, using CPAP at night. ? No history infectious diseases in the past or present.? Patient is on low-dose aspirin. Patient had cardiac treadmill stress test unable to complete due to shortness of breath and fatigue. Coronary CTA did not show any significant CAD. Patient reports that he lost 130 lb and is very active now. Denies any shortness of breath or chest pain with or without exertion. No family or personal history of colon cancer or polyps.? Patient denies melena, hematochezia, unintentional weight loss or ribbon like stools.? Discussed at length the pre-procedure,? prep, diet & medications as well as what to expect prior, during and after the procedure.?? Stressed the importance of good bowel prep.? Recommended the use of Vaseline or Calmoseptine OTC & baby wipes with bowel movements to promote comfort.? ?Patient verbalizes understanding and agrees to plan of care.? He was given the opportunity to ask questions and all questions answered.? We will see him after the procedure.? Medications: New polyethylene glycol 3350 (Miralax) As directed by gastroenterology department at [facility] 238 grams PO ONCE 238 grams 0RF Z12.11 - Encounter for screening for malignant neoplasm of colon bisacodyl (Dulcolax (bisacodyl)) take 4 tabs at noon the day before your colonoscopy 20 mg (4 x 5 mg) PO ONCE 1 day 4 tabs 0RF Z12.11 - Encounter for screening for malignant neoplasm of colon Coding Level of Care Code New Pt Level 3 (00685) Diagnoses Screening for colon cancer Z12.11 Time Spent (min) 40 Comment 30 minutes spent with patient and additional 10 minutes spent reviewing his records
[2023-12-31 09:23] VITALS: BP 122/54; PULSE 66; O2SAT 97; BMI 33.0
== END 2023-12-31 10:40 | disposition home or self-care (01) ==
PROVIDERS: PCP Nurse Practitioner Family; Visit Provider Nurse Practitioner Family
DX: Z12.11 Encounter for screening for malignant neoplasm of colon (principal); Z01.818 Encounter for other preprocedural examination
CPT/HCPCS: 99203

== ENCOUNTER → 2023-12-31 08:59 | Outpatient (BNVA) | payer OTHER, SELFPAY | PROVIDERS: PCP Nurse Practitioner Family; Visit Provider Nurse Practitioner Family ==

== ENCOUNTER 2024-01-21 15:56 | Outpatient (AMB) | payer OTHER, SELFPAY ==
--- NOTE | 2024-01-21 16:25 | HO.NEPHOV ---
Vital Signs 01/21/24 16:26 Height 5 ft 11 in Weight 235 lb 6 oz BMI 32.8 BP 130/50 L Blood Pressure Location Rt brachial Position Sitting Pulse 58 Pulse Source Pulse Oximeter Pulse Oximetry (%) 98 Oxygen Delivery Method Room Air Intake Visit Reasons: CKD/ Conf Lotus Notes Developer Required: No Accompanied by: Self / Same As Patient Allergies codeine Allergy (Unknown, Verified 01/21/24 16:27) unknown naproxen Allergy (Unknown, Verified 01/21/24 16:27) rash, itching HPI Comments Details: Jaskaran was seen in the office in follow-up of his history proteinuria and hypertension. He has lost tremendous amount of weight by diet. His blood pressure is at goal and he has no detectable protein. His serum creatinine is normal now. He does not have any orthostatic symptoms. He does not have any chest pain, shortness of breath, paroxysmal nocturnal dyspnea, orthopnea, pedal edema, hematuria, flank pain, palpitations. He does not take excessive sodium in the diet and avoids nonsteroidal anti-inflammatories. He maintains good hydration. He is on Jardiance. He feels well. [facility] Medical History Morbid obesity Essential hypertension Surgical History Hx of cataract surgery History of carpal tunnel surgery H/O colonoscopy with polypectomy Family History Father Colon cancer Asthma Throat cancer Skin cancer Mother HTN (hypertension) Stroke Diabetes mellitus Sister No problems noted. Sister No problems noted. Social History Housing: House Alcohol intake: current Alcohol intake frequency: holidays/special occasions only Patient Tobacco Use Status: Current everyday Tobacco user Tobacco use type: Cigarette Cigarettes Per Day: 3 e-Cigarette/Vaping Use: Never Used Second Hand Smoke Exposure: No service: No 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al status: employed 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 [employer] 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al exposures/hazards: No Cognitive needs: No Hearing needs: No Vision needs: No Review of Systems Const All systems reviewed & are unremarkable except as noted in HPI and below Physical Exam Vital Signs: Last Vital Signs Pulse 58 01/21/24 16:26 BP 130/50 L 01/21/24 16:26 Pulse Ox 98 01/21/24 16:26 Oxygen Delivery Method Room Air 01/21/24 16:26 BMI result Body Mass Index 32.8 Const General: comfortable and no acute distress Orientation/consciousness: patient oriented x3 HEENT Head: Yes normocephalic Mouth: Normal oral and palatal mucosa present Eyes EOM: EOMs intact bilaterally Neck Neck: Yes supple Resp Auscultation: clear to auscultation bilaterally Cardio Jugular venous distension: no JVD Rate: regular rate GI Palpation (GI): Soft to palpation Auscultation: normal bowel sounds General: Yes no CVA tenderness Back/Spine/Pelvis Back: no CVA tenderness Skin General skin exam: no rashes or lesions noted Neuro General: patient oriented x3 and moves all extremities Extrem General: Yes no pedal edema Results Reviewed Nephrology Results: Hgb 14.8 g/dl (14.0-18.0) 09/19/23 WBC 8.6 X10*3/uL (4.8-10.8) 09/19/23 Plt Count 272 X10*3/uL (160-400) 09/19/23 Sodium 143 mmol/L (135-145) 09/19/23 Potassium 4.1 mmol/L (3.3-5.1) 09/19/23 Chloride 105 mmol/L (96-108) 09/19/23 Carbon Dioxide 30 mmol/L (22-29) H 09/19/23 BUN 19 mg/dL (9-16) H 09/19/23 Creatinine 0.80 mg/dL (0.5-1.4) 09/19/23 Calcium 9.7 mg/dL (8.4-10.2) 09/19/23 Urine Protein Negative mg/dL (Neg-Trace) 09/23/23 Urine Creatinine 130.06 mg/dL 09/23/23 Assessment & Plan Assessment & Plan (1) Essential hypertension: Code(s): I10 - Essential (primary) hypertension Category: Medical Plan Jaskaran has hypertension at goal. He has lost significant amount of weight. His blood sugar is well controlled. He is tolerating current antihypertensive medications. He is on Jardiance. He maintains good hydration and avoid nonsteroidal anti-inflammatories. His serum potassium is normal on ASAD inhibitor. He avoids excessive sodium in the diet. I reiterated that if he continues to lose weight. I shall continue to work with him cut back on his antihypertensive medications. He has no protein in the urine. He is not known to have any retinopathy or LVH. I would not make any medication changes today. All these have been discussed in detail. Answered all questions. Follow-up appointment given. Orders: Orders Creatinine 6 Months I10 - Essential (primary) hypertension Blood Urea Nitrogen 6 Months I10 - Essential (primary) hypertension Electrolytes 6 Months I10 - Essential (primary) hypertension Protein Creatinine Ratio, Ur 6 Months I10 - Essential (primary) hypertension Coding Level of Care Code Est Pt Level 4 (39349) Diagnoses Essential hypertension I10
[2024-01-21 16:26] VITALS: BP 130/50; PULSE 58; O2SAT 98; BMI 32.8
== END 2024-01-21 16:54 | disposition home or self-care (01) ==
PROVIDERS: PCP Nurse Practitioner Family; Visit Provider Internal Medicine Nephrology
DX: I10 Essential (primary) hypertension (principal)
CPT/HCPCS: 99214

== ENCOUNTER → 2024-01-21 15:56 | Outpatient (BNVA) | payer OTHER, SELFPAY | PROVIDERS: PCP Nurse Practitioner Family; Visit Provider Internal Medicine Nephrology ==

== ENCOUNTER 2024-02-24 06:59 | Outpatient (REF) | payer OTHER, SELFPAY ==
[2024-02-24 10:16] LABS: Appearance Urine Cloudy; Color Urine Dark Yellow; Glucose Urine UA >=1000 mg/dL (Negative); Leukocyte Esterase Urine Trace (Negative); Nitrite Urine Negative (Negative); PH 5.5 (5.0-9.0); Specific Gravity - Urine 1.025 (1.005-1.025); UMIC TRIGGER UACC YES; Urine Blood Negative (Negative); Urine Ketones Trace mg/dL (Negative); Urine Protein Trace mg/dL (Neg-Trace)
[2024-02-24 10:33] LABS: Bacteria Urine None Seen (None Seen); Calcium Oxalate Crystals Urine Present; Hyaline Casts Urine 0-2 /LPF (0-2); RBC Urine 0-2 /HPF (0-2); Squamous Epithelial Cell Urine 0-2 /HPF (0-2); WBC Urine 0-5 /HPF (0-5)
== END 2024-02-24 07:00 | disposition home or self-care (01) ==
LOC: HO.HMGCLDS 06:59
PROVIDERS: PCP Nurse Practitioner Family; Visit Provider Nurse Practitioner Family
DX: Z00.00 Encounter for general adult medical examination without abnormal findings (principal)
CPT/HCPCS: 81001

== ENCOUNTER 2024-03-08 07:43 | Outpatient (AMB) | payer OTHER, SELFPAY ==
[2024-03-08 07:49] VITALS: BP 116/60; PULSE 67; O2SAT 98; BMI 33.3
--- NOTE | 2024-03-08 07:49 | MHC.PC.OV ---
Vital Signs 03/08/24 07:49 Height 5 ft 11 in Weight 239 lb BMI 33.3 BP 116/60 Blood Pressure Location Lt brachial Position Sitting Pulse 67 Pulse Source Pulse Oximeter Pulse Oximetry (%) 98 Oxygen Delivery Method Room Air Intake Visit Reasons: 6M F/U Intake Note: Pt is here today for his 6mo. f/u Allergies codeine Allergy (Unknown, Verified 03/08/24 08:36) unknown naproxen Allergy (Unknown, Verified 03/08/24 08:36) rash, itching Medication List - Last Reconciled 03/08/24 by JANETH Vargas alcohol swabs (Alcohol Prep Pads) 1 pad topically; aspirin 81 mg PO DAILY atorvastatin 20 mg PO BEDTIME chlorthalidone 25 mg PO DAILY FreeStyle Lancets (lancets) TID testing NS FreeStyle Lite Meter (blood-glucose meter) Tid testing NS FreeStyle Lite Strips (blood sugar diagnostic) TId testing NS Jardiance (empagliflozin) 10 mg PO DAILY NS lisinopril 40 mg PO DAILY nifedipine ER 60 mg PO BID omega-3 acid ethyl esters 2 caps PO BID sertraline 50 mg PO DAILY trazodone 50 mg PO BEDTIME Tobacco use date assessed: 03/08/24 Dental Screening Dental Screen Date: 03/08/24 Did you have a dental visit in the last 12 months?: Yes Did you have a dental problem in the last 6 months where you did not have access to dental care?: No Was dental information given to patient?: Patient has dentist HPI 6M F/U HPI Details Pt is a diabetic, on an ASAD and a statin. A1C in office today is 5.7. Microalbumin is up to date. Denies polyuria, polydipsia, and neuropathy. Pt denies any signs and symptoms of hypoglycemia and does know how to correct it. Eye exam is scheduled. Pt follows up with nephrology, cardiology, and derm. Refuses pneumonia vaccines at this current time. Pt c/o right knee pain. He does have slight swelling as well. Will order XR. PFSH Medical History Morbid obesity Essential hypertension Surgical History Hx of cataract surgery History of carpal tunnel surgery H/O colonoscopy with polypectomy Family History Father Colon cancer Asthma Throat cancer Skin cancer Mother HTN (hypertension) Stroke Diabetes mellitus Sister No problems noted. Sister No problems noted. Social History Housing: House Alcohol intake: current Alcohol intake frequency: holidays/special occasions only Patient Tobacco Use Status: Current everyday Tobacco user Tobacco use type: Cigarette Cigarettes Per Day: 3 e-Cigarette/Vaping Use: Never Used Second Hand Smoke Exposure: No service: No 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al status: employed 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 [employer] 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al exposures/hazards: No Cognitive needs: No Hearing needs: No Vision needs: No Questionnaire PHQ-9 Over the last 2 weeks, how often have you been bothered by any of the following problems? 1. Little interest or pleasure in doing things: not at all 2. Feeling down, depressed, or hopeless: not at all 3. Trouble falling or staying asleep, or sleeping too much: not at all 4. Feeling tired or having little energy: not at all 5. Poor appetite or overeating: not at all 6. Feeling bad about yourself - or that you are a failure or have let yourself or your family down: not at all 7. Trouble concentrating on things, such as reading the newspaper or watching television: not at all 8. Moving or speaking so slowly that other people could have noticed. Or the opposite - being so fidgety or restless that you have been moving around a lot more than usual: not at all 9. Thoughts that you would be better off or of hurting yourself in some way: not at all Total score: 0 Depression Screening Interpretation: Negative Depression Screening Done: Yes [id number] - PHQ-9 Billing: Yes Source: Developed by Drs. Ben Monroe, Paulina Carballo, Rm Broussard and colleagues, with an educational daryl from [employer]. Thrive Questionnaire Date Thrive assessed: 09/23/23 I am a: Patient What is your living situation today?: I have a steady place to live Within the past 12 months, did the food you bought not last and you didn't have the money to get more?: Never true Within the past 12 months, did you worry whether your food would run out before you got money to buy more?: Never true Do you have trouble paying for medicines?: No Do you have trouble getting transportation to medical appointments?: No Do you have trouble paying your heating and electricity bill?: No Do you have trouble taking care of your child, family member or friend?: No Do you have trouble with day-to-day activities such as bathing, preparing meals, shopping, managing finances, etc.?: I choose not to answer this question Are you interested in more education?: No Please select the resources that you would like help with: None Currently or been in a relationship where the following occur: No concerns reported THRIVE Score: 0 AUDIT C Alcohol Use Questionnaire (AUDIT-C) 1. How often do you have a drink containing alcohol?: 2-4 times a month 2. How many drinks containing alcohol do you have on a typical day when you are drinking?: 1 or 2 3. How often do you have six or more drinks on one occasion?: Never Total Score: 2 ERASMO-7 AMB Questionnaire ERASMO-7 Date ERASMO - 7 assessed: 09/23/23 Feeling nervous, anxious, or on edge: 0 = Not at all Not being able to stop or control worryin = Not at all Worrying too much about different things: 0 = Not at all Trouble relaxin = Not at all Source: Developed by Drs. Ben Monroe, Paulina Carballo, Rm Broussard and colleagues, with an educational daryl from [employer]. ERASMO-7 Assessment Billing ERASMO-7 Assessment Tool: pt declined-do not bill Review of Systems Const Reports as per HPI Physical exam (Primary Care) Vital Signs: Last Vital Signs Pulse 67 03/08/24 07:49 BP 116/60 03/08/24 07:49 Pulse Ox 98 03/08/24 07:49 Oxygen Delivery Method Room Air 03/08/24 07:49 BMI result Body Mass Index 33.3 Tobacco/Smoking Status: Tobacco use Status Tobacco use date assessed 03/08/24 03/08/24 07:50 Patient Tobacco Use Status Current everyday Tobacco 03/08/24 07:50 Tobacco use type Cigarette 03/08/24 07:50 e-Cigarette/Vaping Use Never Used 03/08/24 07:50 Depression Screening Interpretation: Negative Thrive Assessment: Date of Thrive Assessment Date Thrive assessed 09/23/23 03/08/24 07:50 Currently or been in a relationship where the following occur: No concerns reported Const General: cooperative Nutritional Appearance: obese Orientation/consciousness: patient oriented x3 Resp Effort & Inspection: normal respiratory effort Auscultation: clear to auscultation bilaterally Cardio Rate: regular rate Rhythm: regular rhythm Heart sounds: S1 normal heart sound present, S2 normal heart sound present and Murmur heart sound present systolic Neuro General: patient oriented x3 Extrem Other: bilat feet: + sensation with use of monofilament, feet intact, onychomycosis noted bilat, right knee: slight swelling, extensive crepitus noted, - mcmurrays, - lachmans Right lower extremity: edema (trace) Left lower extremity: edema (trace) Psych Appearance: grossly normal Mental Status: mental status grossly normal Speech and movement: Normal speech and movement present Affect: normal affect Attitude: cooperative Thought process: Normal thought process present Thought content: Normal thought content present Insight: Good insight present (Psych) Judgement: Good judgement present (Psych) Results AMB Hemoglobin A1c AMB Hemoglobin A1c 5.7 % Last Edit by Lisbeth Alejandra CMA on 03/08/24 08:24 Assessment and Plan Assessment & Plan (1) Right knee pain: Code(s): M25.561 - Pain in right knee Plan: XR ordered (2) Diabetes: Code(s): E11.9 - Type 2 diabetes mellitus without complications Plan: Labs ordered Plan The patient agreed to the use of a medical imaging director for this encounter. Scribed for JANETH Ta by Carie Pantoja medical imaging director, on 03/08/2024 at 08:15 EST. Orders: Orders AMB Hemoglobin A1c Today E11.9 - Type 2 diabetes mellitus without complications Comprehensive [place]. Panel Fast Today E11.9 - Type 2 diabetes mellitus without complications UA CC w/rflx Micro + Cult Today E11.9 - Type 2 diabetes mellitus without complications Lipid Panel Today E11.9 - Type 2 diabetes mellitus without complications XR knee RT 3V Today M25.561 - Pain in right knee Complete Blood Count Auto Diff Today E11.9 - Type 2 diabetes mellitus without complications TSH reflex Free T4 Today E11.9 - Type 2 diabetes mellitus without complications Medications: Refilled atorvastatin 20 mg PO BEDTIME 90 tabs 1RF Coding Level of Care Code Est Pt Level 3 (86423) Diagnoses Right knee pain M25.561 Diabetes E11.9
== END 2024-03-08 08:34 | disposition home or self-care (01) ==
PROVIDERS: PCP Nurse Practitioner Family; Visit Provider Nurse Practitioner Family
DX: M25.561 Pain in right knee (principal); E11.9 Type 2 diabetes mellitus without complications

== ENCOUNTER → 2024-03-08 07:43 | Outpatient (BNVA) | payer OTHER, SELFPAY | PROVIDERS: PCP Nurse Practitioner Family; Visit Provider Nurse Practitioner Family | DX: E11.9 Type 2 diabetes mellitus without complications (principal); M25.561 Pain in right knee | CPT/HCPCS: 83036 ==

== ENCOUNTER 2024-03-10 10:09 | Outpatient (AMB) | payer OTHER, SELFPAY ==
--- NOTE | 2024-03-10 10:41 | MHC.OFFVIS ---
Vital Signs 03/10/24 10:42 Height 5 ft 11 in Weight 240 lb BMI 33.5 BP 110/60 Blood Pressure Location Lt brachial Position Sitting Respiration 16 Pulse 64 Pulse Source Pulse Oximeter Pulse Oximetry (%) 97 Oxygen Delivery Method Room Air Intake Visit Reasons: INP-Obstructive sleep apnea Intake Note: New pt presents tot he office for consultation for sleep apnea. Pt reports he's been on cpap for years and recently lost 100lbs. He thinks e may not need it anymore. Branch General Manager Required: No Allergies codeine Allergy (Unknown, Verified 03/10/24 10:42) unknown naproxen Allergy (Unknown, Verified 03/10/24 10:42) rash, itching Medication List - Last Reconciled 03/10/24 by SANDEE Barnes alcohol swabs (Alcohol Prep Pads) 1 pad topically; aspirin 81 mg PO DAILY atorvastatin 20 mg PO BEDTIME chlorthalidone 25 mg PO DAILY FreeStyle Lancets (lancets) TID testing NS FreeStyle Lite Meter (blood-glucose meter) Tid testing NS FreeStyle Lite Strips (blood sugar diagnostic) TId testing NS Jardiance (empagliflozin) 10 mg PO DAILY NS lisinopril 40 mg PO DAILY nifedipine ER 60 mg PO BID omega-3 acid ethyl esters 2 caps PO BID sertraline 50 mg PO DAILY trazodone 50 mg PO BEDTIME HPI Comments Details: 63-yr-old male presents for new in-person patient visit for sleep consultation. Patient reports he was diagnosed w/ sleep apnea at least 5 yrs ago at [facility] by Dr Santiago. He was referred for in-lab sleep study as he had snoring, daytime sleepiness, and was kicking in his sleep. At the time of the PSG, he weighed 368lbs. He does not recall the severity of his sleep apnea and does not recall being told he had PLMS. He states he has slept well with his CPAP, and the leg movements subsided. Since, he has been compliant w/ CPAP. States he uses it nightly. He denies daytime sleepiness, which improved further after the weight loss. However, over the last year, he has had an intentional ~130-140 lb weight loss through diet and starting jardiance. So he wonders if he still does need to use CPAP tx. He walks a lot at work. He denies SOB, wheezing. He denies any recent leg movements or leg cramps from sleep. 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 His resp company is [employer]. [facility] Medical History Morbid obesity Essential hypertension Surgical History Hx of cataract surgery History of carpal tunnel surgery H/O colonoscopy with polypectomy Family History Father Colon cancer Asthma Throat cancer Skin cancer Mother HTN (hypertension) Stroke Diabetes mellitus Sister No problems noted. Sister No problems noted. Social History Housing: House Alcohol intake: current Alcohol intake frequency: holidays/special occasions only Patient Tobacco Use Status: Current everyday Tobacco user Tobacco use type: Cigarette Cigarettes Per Day: 3 e-Cigarette/Vaping Use: Never Used Second Hand Smoke Exposure: No service: No 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al status: employed 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 [employer] 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al exposures/hazards: No Cognitive needs: No Hearing needs: No Vision needs: No Physical Exam Vital Signs: Last Vital Signs Pulse 64 03/10/24 10:42 Resp 16 03/10/24 10:42 BP 110/60 03/10/24 10:42 Pulse Ox 97 03/10/24 10:42 Oxygen Delivery Method Room Air 03/10/24 10:42 BMI result Body Mass Index 33.5 Const General: no acute distress Orientation/consciousness: patient oriented x3 HEENT Other: Mallampati stage 3 Resp Effort & Inspection: normal respiratory effort and able to speak in complete sentences Cardio Rate: regular rate Rhythm: regular rhythm Neuro General: patient oriented x3 Psych Mental Status: mental status grossly normal Speech and movement: Clear speech present Attitude: cooperative Assessment & Plan Assessment & Plan (1) JAVIER (obstructive sleep apnea): Code(s): G47.33 - Obstructive sleep apnea (adult) (pediatric) Category: Medical (2) Weight loss: Comment: Intentional Code(s): R63.4 - Abnormal weight loss Category: Medical (3) Periodic limb movements of sleep: Code(s): G47.61 - Periodic limb movement disorder Category: Medical Plan Pt is advised to undergo home sleep study to assess status of sleep apnea as pt has lost significantly greater than 10% of his body weight since previous in-lab PSG when he weighed 368lb. Will f/u with pt after study to discuss results and if pt should continue to use CPAP. Monitor PLMS s/s- resolved after staring CPAP tx. Pt seen in c/w Dr Mae Magaña. Orders: Orders RT home sleep study Today G47.33 - Obstructive sleep apnea (adult) (pediatric), R63.4 - Abnormal weight loss Coding Level of Care Code New Pt Level 4 (69941) Diagnoses JAVIER (obstructive sleep apnea) G47.33 Weight loss R63.4 Periodic limb movements of sleep G47.61
[2024-03-10 10:42] VITALS: BP 110/60; PULSE 64; RESP 16; O2SAT 97; BMI 33.5
== END 2024-03-10 11:09 | disposition home or self-care (01) ==
PROVIDERS: PCP Nurse Practitioner Family; Visit Provider Nurse Practitioner Family
DX: G47.33 Obstructive sleep apnea (adult) (pediatric) (principal); R63.4 Abnormal weight loss; G47.61 Periodic limb movement disorder
CPT/HCPCS: 99204

== ENCOUNTER → 2024-03-10 10:09 | Outpatient (BNVA) | payer OTHER, SELFPAY | PROVIDERS: PCP Nurse Practitioner Family; Visit Provider Nurse Practitioner Family ==

== ENCOUNTER → 2024-04-22 13:47 | Outpatient (REF) | payer OTHER, SELFPAY | LOC: HO.SL 13:47 | PROVIDERS: PCP Nurse Practitioner Family; Visit Provider Nurse Practitioner Family | DX: Z13.89 Encounter for screening for other disorder (principal) ==

== ENCOUNTER 2024-06-11 11:12 | Day surgery (SDC) | payer OTHER, SELFPAY ==
--- NOTE | 2024-06-10 11:09 | HO.ANESPROP2 ---
HPI - Anesthesia Eval Consult details Narrative: 63yo M for Colonoscopy Follows [facility] yearly for multiple cardiac risk factors. Stable at last office visit 06/2023 Anesthesia Pre-Procedure Meds Is the patient on any of the following meds?: SGLT2 Inhib PMFSH Active Problems Active Problems: All Active Problems Periodic limb movements of sleep (Acute) Weight loss (Acute) Right knee pain (Acute) Depression (Acute) Obesity (BMI 30-39.9) (Acute) Abnormal stress electrocardiogram test using treadmill (Acute) Coronary artery disease (Acute) High triglycerides (Acute) Shortness of breath (Acute) Abnormal stress test (Acute) Morbid obesity (Acute) JAVIER (obstructive sleep apnea) (Acute) Essential hypertension (Acute) Sinus bradycardia (Acute) First degree heart block (Acute) Pre-op evaluation (Acute) Microalbuminuria (Acute) Systolic murmur (Acute) Screening for colon cancer (Acute) Skin lesion (Acute) Screening PSA (prostate specific antigen) (Acute) Diabetes (Acute) Physical exam (Acute) Past Medical History Medical History Morbid obesity Essential hypertension Family History Family History Father Colon cancer Asthma Throat cancer Skin cancer Mother HTN (hypertension) Stroke Diabetes mellitus Sister No problems noted. Sister No problems noted. Surgical History Surgical History Hx of cataract surgery History of carpal tunnel surgery H/O colonoscopy with polypectomy Social History Social History Housing: House Alcohol intake: current Alcohol intake frequency: holidays/special occasions only Patient Tobacco Use Status: Current everyday Tobacco user Tobacco use type: Cigarette Cigarettes Per Day: 3 e-Cigarette/Vaping Use: Never Used Second Hand Smoke Exposure: No service: No 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al status: employed 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 [employer] 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al exposures/hazards: No Cognitive needs: No Hearing needs: No Vision needs: No Meds Allergies Allergy/AdvReac Type Severity Reaction Status Date / Time codeine Allergy Unknown unknown Verified 03/10/24 10:42 naproxen Allergy Unknown rash, Verified 03/10/24 10:42 itching Home Medications ?Medication ?Instructions ?Recorded ?Confirmed ?Last Taken ?Type aspirin 81 mg tablet,delayed 81 mg PO DAILY 12/13/22 03/10/24 Unknown History release atenolol 50 mg-chlorthalidone 25 1 tab PO DAILY 06/10/24 Unknown History mg tablet Exam Narrative Narrative: EKG with sinus bradycardia, 44/Min; sinus arrhythmia, possible borderline MA prolongation, PAC. Echocardiogram with LVEF of 65-70% and otherwise unremarkable. In the stress test, he was able to exercise on Pankaj protocol for only 3 minutes and 40 seconds. Reached 53% of target heart rate and stopped due to fatigue. Subsequently, stopped clonidine. Coronary CT-essentially [id number] CAD and nothing hemodynamically significant. 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 Additionally, myocardial bridging in 1st and 3rd diagonal branches but no significant obstruction. Assessment and Plan Assessment Anesthesia Assessment: Chart Reviewed
[2024-06-11 11:43] VITALS: BP 132/79; PULSE 58; RESP 16; TEMP 36.7; O2SAT 97; BMI 32.8
--- NOTE | 2024-06-11 11:53 | MHC.SHP ---
Pre-Procedural Eval Section A - 24 Hr Update-Section A only Date of Service: 06/11/24 The patient is an INPATIENT: No The patient has been examined within 24 hours of the surgical procedure. The History & Physical has been completed within 30 days and I have reviewed it.: No Section B - Complete if H&P > 30 days Chief Complaint: Surveillance of colon polyps Relevant Family History (Specify if Yes): Yes Relevant Social History: Tobacco Use Present Medications: see Short Stay Collaborative assessment Medical History: Significant History (Morbid obesity Essential hypertension) History of Previous Operations: Relevant previous surgery/procedure and date(s) (Hx of cataract surgery History of carpal tunnel surgery H/O colonoscopy with polypectomy) Allergies: Allergies Allergy/AdvReac Type Severity Reaction Status Date / Time codeine Allergy Unknown unknown Verified 03/10/24 10:42 naproxen Allergy Unknown rash, Verified 03/10/24 10:42 itching Review of Systems Sugical H&P ROS: Negative: Constitution, Cardiovascular, Respiratory and Gastrointestinal Exam Surgical H&P Exam: Normal: Heart, Normal: Lungs, Normal: Extremities and Normal: Abdomen Plan Diagnosis/Plan: Unchanged I have reviewed the history and physical and performed a pertinent physical examination on my patient. No changes have occurred unless specified. Time Spent With Patient Time: Total time managing care of this patient today ____ minutes.
[2024-06-11] MEDS: Lactated Ringers 1,000 ML 100 ML IVCONT (11:59)
[2024-06-11 12:04] LABS: Glucose, Whole Blood 103 mg/dL (60-115)
[2024-06-11 14:00] VITALS: BP 106/50; PULSE 55; RESP 16; TEMP 36.4; O2SAT 97
--- NOTE | 2024-06-11 14:12 | HO.OPN-COLON ---
Colonoscopy Operative Note Operative Note Date of Service: 06/11/24 Narrative: COLONOSCOPY TILL CECUM WITH SNARE POLYPECTOMY, SUBMUCOSAL INJECTION AND HEMOCLIP PLACEMENT Pre-op diagnosis: Surveillance for colon polyps (pt reports a large polyps was removed during previous colonoscopy at [facility] and procedure was complicated by post polypectomy bleed). Post-op diagnosis:? Colon polyps, Hemorrhoids Endoscopist:? Sandy Collins MD Anesthesia:?MAC Consent: Indications for the procedure and potential complications of bleeding, perforation, reaction to medications and missed diagnosis were discussed with the patient and informed consent was obtained. Instrument: Olympus CF H 190 L variable stiffness adult colonoscope Monitoring: Vital signs and clinical assessment, intermittent blood pressure monitoring, continuous EKG monitoring, Pulse oximetry and Carbon Dioxide monitoring were done throughout the procedure. Please see anesthesia flowsheet. Colon withdrawl time was 30 minutes. Procedure: The patient was placed in the left lateral decubitis position and pre-procedure medications were administered. After a digital rectal examination of the ano-rectum, the video colonoscope was inserted into the rectum and advanced through the colon to the cecum. The colonoscope was slowly withdrawn in a retrograde panoramic fashion and the colon mucosa was carefully examined including a retroflexed view of the rectum. Findings and interventions are described below. Procedure Difficulty: without difficulty Findings: Terminal Ileum: Not evaluated Cecum: Prominent ICV with ? adenomatous change - biopsies were obtained. Ascending Colon: A 2.5 cms flat polyp in the distal AC at 95 cms. Polyp was raised with 4 cc of Eleview and removed with a hot snare. Polypectomy site was closed with 2 hemoclips and marked with Endomark Transverse Colon: Normal Descending Colon: Normal Sigmoid Colon: Normal Rectum: Normal Ano-rectum: Moderate internal hemorrhoids Colon preparation: Good after copious irrigation. [place] Bowel Preparation Scale Right colon; 2 Transverse colon: 2 Left colon; 2 (0 = Unprepared colon segment with mucosa not seen due to solid stool that cannot be cleared. 1 = Portion of mucosa of the colon segment seen, but other areas of the colon segment not well seen due to staining, residual stool and/or opaque liquid. 2 = Minor amount of residual staining, small fragments of stool and/or opaque liquid, but mucosa of colon segment seen well. 3 = Entire mucosa of colon segment seen well with no residual staining, small fragments of stool or opaque liquid) Impression and Post Procedure Diagnosis: Colonoscopy Findings: One large polyp was removed A few additional smaller polyps in the left colon - not removed due to excessive length of the procedure. Prominent ICV with ? adenomatous change - biopsies were obtained. Moderate hemorrhoids on retroflexed exam. Plan: I will send a letter with biopsy results. Repeat Colonoscopy in 6 - 12 months if AC polyp is adenomatous and 5 years if polyps are hyperplastic (due to history of adenomatous colon polyps). Above findings were reviewed with the patient and relevant handouts were given and the discharge area.
[2024-06-11 14:13] VITALS: BP 122/60; PULSE 61; RESP 16; O2SAT 97
[2024-06-11 14:20] VITALS: BP 132/63; PULSE 55; RESP 16; TEMP 36.1; O2SAT 97
--- NOTE | 2024-06-11 14:30 | HO.POSTANES ---
Post Anesthesia Evaluation Post Anesthesia Evaluation Date of Service: 06/11/24 Vital Signs: Vital Signs Temp Pulse Resp BP Pulse Ox O2 Del Method 06/11/24 14:20 97 F 55 16 132/63 97 Room Air 06/11/24 14:13 61 16 122/60 97 Room Air 06/11/24 14:00 97.6 F 55 16 106/50 L 97 Room Air 06/11/24 11:43 98.1 F 58 16 132/79 97 Room Air Anesthesia: Monitored Mental Status: Awake Pain Control: Satisfactory Nausea/Vomiting: None Hydration: Adequate Anesthesia-Related Issues: No Anes. Related Issues
== END 2024-06-11 14:35 | disposition home or self-care (01) ==
PROVIDERS: PCP Nurse Practitioner Family; Visit Provider Internal Medicine Gastroenterology
PROC: 0DJD8ZZ Inspection of Lower Intestinal Tract, Via Natural or Artificial Opening Endoscopic (ICD-10-PCS; CPT 45378; principal; 2024-06-11 13:20)
DX: Z12.11 Encounter for screening for malignant neoplasm of colon (principal); Z86.0101 Personal history of adenomatous and serrated colon polyps; Z80.0 Family history of malignant neoplasm of digestive organs; D12.2 Benign neoplasm of ascending colon; K64.8 Other hemorrhoids; I10 Essential (primary) hypertension; E66.01 Morbid (severe) obesity due to excess calories; Z68.33 Body mass index [BMI] 33.0-33.9, adult; G47.30 Sleep apnea, unspecified; Z79.82 Long term (current) use of aspirin; Z79.899 Other long term (current) drug therapy; Z88.6 Allergy status to analgesic agent; Z88.5 Allergy status to narcotic agent; F17.210 Nicotine dependence, cigarettes, uncomplicated
CPT/HCPCS: 45385; 45381; 82947; 88305; J2003; J2704

== ENCOUNTER → 2024-06-11 11:12 | Outpatient (BNV) | payer OTHER, SELFPAY | PROVIDERS: PCP Nurse Practitioner Family; Visit Provider Internal Medicine Gastroenterology | DX: Z12.11 Encounter for screening for malignant neoplasm of colon (principal); Z86.0100 Personal history of colon polyps, unspecified; K63.5 Polyp of colon; K64.8 Other hemorrhoids | CPT/HCPCS: 45380; 45381; 45385 ==

== ENCOUNTER 2024-06-17 14:44 | Outpatient (AMB) | payer OTHER, SELFPAY ==
[2024-06-17 14:53] VITALS: BP 120/60; PULSE 64; BMI 31.4
--- NOTE | 2024-06-17 14:53 | A.OFFVIS_ITS ---
Vital Signs 06/17/24 14:53 Height 5 ft 11 in Weight 224 lb 13.944 oz BMI 31.4 BP 120/60 Blood Pressure Location Lt brachial Position Sitting Pulse 64 Pulse Source Monitor Intake Visit Reasons: 1 yr f/up Allergies codeine Allergy (Unknown, Verified 03/10/24 10:42) unknown naproxen Allergy (Unknown, Verified 03/10/24 10:42) rash, itching Medication List - Last Reconciled 06/17/24 by Jimmy Cano MD aspirin 81 mg PO DAILY atorvastatin 20 mg PO BEDTIME chlorthalidone 25 mg PO DAILY FreeStyle Lancets (lancets) TID testing NS FreeStyle Lite Meter (blood-glucose meter) Tid testing NS FreeStyle Lite Strips (blood sugar diagnostic) TId testing NS Jardiance (empagliflozin) 10 mg PO DAILY NS lisinopril 40 mg PO DAILY nifedipine ER 60 mg PO BID omega-3 acid ethyl esters 2 caps PO BID sertraline 50 mg PO DAILY trazodone 50 mg PO BEDTIME HPI Comments Details: Jaskaran returns for follow-up. In the past, he was seen regarding bradycardia. He does not really have any clear-cut cardiac symptoms like angina or shortness of breath or in fact anything cardiac sounding. Around 2007 or so, it seems that he underwent some procedure and possibly ablation but there is no details available and he cannot remember. He has a history of morbid obesity and was weighing well past 300 lb but it seems he has lost more than 100 lb over time. He has made a lot of lifestyle changes. Otherwise, has diabetes and hypertension. On appropriate medications. On BiPAP for obstructive sleep apnea. Overall, he has got no cardiac symptoms whatsoever. He can do all his daily activities with no limitations. Due to bradycardia and chronotropic incompetence, he is off clonidine as well as atenolol. Since last seen, no new concerns. REPLACED BY [facility] Medical History Morbid obesity Essential hypertension Surgical History Hx of cataract surgery History of carpal tunnel surgery H/O colonoscopy with polypectomy Family History Father Colon cancer Asthma Throat cancer Skin cancer Mother HTN (hypertension) Stroke Diabetes mellitus Sister No problems noted. Sister No problems noted. Social History Housing: House Do you presently have visiting nurse or other home services: No Alcohol intake: current Alcohol intake frequency: holidays/special occasions only Patient Tobacco Use Status: Former Tobacco user Tobacco use type: Cigarette Cigarettes Per Day: 3 e-Cigarette/Vaping Use: Never Used Second Hand Smoke Exposure: No service: No 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al status: employed 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 [employer] 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al exposures/hazards: No Cognitive needs: No Hearing needs: No Vision needs: No Review of Systems Const Denies weakness ENT Denies dizziness Card Denies chest pain, Denies chest pain with activity, Denies syncope, Denies rapid heart rate, Denies pedal edema, Denies edema, Denies leg edema, Denies lightheadedness, Denies palpitations, Denies dyspnea, Denies dyspnea on exertion and Denies orthopnea Resp Denies cough, Denies dyspnea and Denies dyspnea on exertion GI Denies hematochezia and Denies change in stool character Musc Denies abnormal gait, Denies muscle cramps, Denies muscle weakness, Denies numbness, Denies radiating pain into limb and Denies tingling Neuro Denies abnormal gait, Denies dizziness, Denies syncope, Denies numbness, Denies tingling and Denies weakness Endo Denies palpitations Physical Exam Vital Signs: Last Vital Signs Pulse 64 06/17/24 14:53 BP 120/60 06/17/24 14:53 BMI result Body Mass Index 31.4 Const General: comfortable and no acute distress Orientation/consciousness: patient oriented x3 HEENT Other: Unremarkable Head: Yes normal to inspection Neck Neck: Yes normal visual inspection Chest Chest palpation & inspection: normal inspection of the chest Resp Auscultation: clear to auscultation bilaterally Cardio Palpation: normal PMI Heart sounds: S1 normal heart sound present, S2 normal heart sound present, no gallops, no murmurs and no rubs GI Palpation (GI): Soft to palpation Back/Spine/Pelvis Other: unremarkable Skin General skin exam: no rashes or lesions noted Neuro General: patient oriented x3 Extrem General: Yes normal to inspection Psych Mental Status: mental status grossly normal Office Procedures EKG Details: EKG with underlying sinus rhythm at 64/Min; rightward axis but not clear if it was lead reversal rather; nonspecific ST-[place] [id number], Complete Assessment & Plan Assessment & Plan (1) Sinus bradycardia: Code(s): R00.1 - Bradycardia, unspecified Category: Medical (2) Diabetes: Code(s): E11.9 - Type 2 diabetes mellitus without complications Category: Medical (3) Essential hypertension: Code(s): I10 - Essential (primary) hypertension Category: Medical (4) JAVIER (obstructive sleep apnea): Code(s): G47.33 - Obstructive sleep apnea (adult) (pediatric) Category: Medical (5) Morbid obesity: Code(s): E66.01 - Morbid (severe) obesity due to excess calories Category: Medical (6) Coronary artery disease: Code(s): I25.10 - Atherosclerotic heart disease of false pass coronary artery without angina pectoris Category: Medical Plan Cardiac studies reviewed. Echocardiogram with LVEF of 65-70% and otherwise unremarkable. In the stress test, he was able to exercise on Pankaj protocol for only 3 minutes and 40 seconds. Reached 53% of target heart rate and stopped due to fatigue. Subsequently, stopped clonidine/Atenolol. Coronary CT-essentially keux-vb-ysxjcyud CAD and nothing hemodynamically significant. 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 Additionally, myocardial bridging in 1st and 3rd diagonal branches but no significant obstruction. Overall, he has got numerous cardiovascular risk factors and some CAD but nothing hemodynamically significant. Aggressive risk factor modification only including management of weight, diabetes, hypertension, dyslipidemia. He has already lost more than 100 lb in weight which is excellent. He can continue to keep up. Otherwise, management of diabetes, hypertension and dyslipidemia and he is already on appropriate medications. Hopefully all of these improve with weight loss. Follow-up in 1 year. In the interim, he will call with any concerns. Coding Level of Care Code Est Pt Level 4 (63838) Diagnoses Sinus bradycardia R00.1 Diabetes E11.9 Essential hypertension I10 JAVIER (obstructive sleep apnea) G47.33 Morbid obesity E66.01 Coronary artery disease I25.10 CPT Codes EKG - CPT: 36855-Itgrusqbvlmynrjat, Complete ([id number])
== END 2024-06-17 15:26 | disposition home or self-care (01) ==
PROVIDERS: PCP Nurse Practitioner Family; Visit Provider Internal Medicine
DX: R00.1 Bradycardia, unspecified (principal); E11.9 Type 2 diabetes mellitus without complications; I10 Essential (primary) hypertension; G47.33 Obstructive sleep apnea (adult) (pediatric); E66.01 Morbid (severe) obesity due to excess calories; I25.10 Atherosclerotic heart disease of native coronary artery without angina pectoris
CPT/HCPCS: 93010; 99214

== ENCOUNTER → 2024-06-17 14:44 | Outpatient (BNVA) | payer OTHER, SELFPAY | PROVIDERS: PCP Nurse Practitioner Family; Visit Provider Internal Medicine | DX: R00.1 Bradycardia, unspecified (principal); E11.9 Type 2 diabetes mellitus without complications; I10 Essential (primary) hypertension; G47.33 Obstructive sleep apnea (adult) (pediatric); E66.01 Morbid (severe) obesity due to excess calories; Z68.31 Body mass index [BMI] 31.0-31.9, adult; I25.10 Atherosclerotic heart disease of native coronary artery without angina pectoris | CPT/HCPCS: 93005 ==

== ENCOUNTER → 2024-07-06 13:33 | Outpatient (REF) | payer OTHER, SELFPAY ==
--- OUTSIDE RECORDS SUMMARY | 2024-07-06 14:33 | XMS_ITS | Clinical Summary ---
Author Organization [facility] Address [address] [place] [address] Phone Care Team Providers Care Dinkey Locomotive Engineer Name Role Phone Scar Araiza NP Primary Care Provider [phone] Allergies Active Allergy Reactions Criticality Noted Date Comments Codeine 04/13/2021 Naproxen 04/13/2021 Medications atenolol-chlort halidone (TENORETIC) 100-25 MG per tablet Take 1 tablet by mouth 1 (one) time each day Active atorvastatin (LIPITOR) 20 MG tablet Take 1 tablet by mouth 1 (one) time each day 02/08/2021 Active cloNIDine (CATAPRES) 0.2 MG tablet Take 1 tablet by mouth 3 (three) times a day Active glipiZIDE (GLUCOTROL) 5 MG tablet Take 1 tablet by mouth twice a day Active metFORMIN (GLUCOPHAGE) 1000 MG tablet Take 1 tablet by mouth 2 (two) times a day Active NIFEdipine XL (PROCARDIA XL) 60 MG 24 hr tablet Take 1 tablet by mouth twice a day 12/17/2016 Active omega-3 acid ethyl esters (LOVAZA) 1 g capsule Take 2 capsules by mouth 2 (two) times a day 03/09/2021 Active lisinopril 40 MG tablet Take 1 tablet (40 mg total) by mouth 1 (one) time each day 90 tablet 3 03/26/2023 Active Active Problems Problem Noted Date Diagnosed Date History of polyp of colon 08/22/2021 Hyperlipidemia 08/22/2021 Morbid obesity 08/22/2021 Essential hypertension 04/13/2021 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 06/13/2020 Proteinuria 04/13/2021 Hypertension 04/13/2021 Uncontrolled type 2 diabetes mellitus 04/28/2009 Overview (03/09/2024): Replacing diagnoses that were inactivated after the 03/09/24 Regulatory Import Asthma 10/28/2008 Obstructive sleep apnea syndrome 10/28/2008 Immunizations Name Administration Dates Next Due DT 06/25/2002 Pneumococcal Polysaccharide 11/13/2012 Tdap 11/13/2012 Family History Medical History Relation Comments Cancer Father Colon cancer/thr oat cancer/skin cancer Diabetes Mother Hypertension Mother Stroke Mother Relation Status Comments Father Mother Social History Tobacco Use Types Packs/Day Years Used Date Smoking Tobacco: Every Day Smokeless Tobacco: Never Tobacco Cessation:Ready to Q uit: Not Asked; Counseling Given: Not Answered Alcohol Use Standard Drinks/Week Comments Yes 0 (1 standard drink = 0.6 oz pur e alcohol) occasional Sex and Gender Information Value Date Recorded Sex Assigned at Not on file Legal Sex Male 5:21 PM EST Gender Identity Not on file Sexual Orientation Not on file Last Filed Vital Signs Vital Sign Reading Time Taken Comments Blood Pressure 116/54 06/19/2022 4:16 PM EST Pulse 51 08/22/2021 4:13 PM EDT Temperature - - Respiratory Rate - - Oxygen Saturation 98% 04/13/2021 3:56 PM EDT Inhaled Oxygen Concentration - - Weight 140 kg (307 lb 9.6 oz) 06/19/2022 4:16 PM EST Height - - Body Mass Index - - Plan of Treatment Health Maintenance Due Date Last Done Comments Colorectal Cancer Screening: Annual FOBT 11/17/2008 Colorectal Cancer Screening: Colonoscopy 11/17/2008 Colorectal Cancer Screening: Sigmoidoscopy 11/17/2008 Pneumococcal Vaccine: Pediat rics (0 to 5 Years) and At-Risk Patients (6 to 64 Years) (2 of 2 - PCV) 11/13/2013 11/13/2012 Diabetes: Hemoglobin A1C 07/09/2020 Diabetes: Ophthalmology Exam 07/09/2020 Diabetes: Pedal Pulse Checked 07/09/2020 Diabetes: Sensory Foot Exam 07/09/2020 Diabetes: Visual Foot Exam 07/09/2020 Influenza Vaccine (#1) 2024 Hepatitis B Vaccine Aged Out No longe r eligible based on patient's age to complete this topic Insurance [facility] Care Teams Dinkey Locomotive Engineer Relationship Specialty Start Date End Date Scar Araiza NP [facility] [place] [address] PCP - General Nurse Practitioner 03/26/21
== END ==
LOC: HO.SL 13:33
PROVIDERS: PCP Nurse Practitioner Family; Visit Provider Nurse Practitioner Family
DX: G47.33 Obstructive sleep apnea (adult) (pediatric) (principal); R63.4 Abnormal weight loss
CPT/HCPCS: 95806

== ENCOUNTER → 2024-07-06 13:45 | Outpatient (BNV) | payer OTHER, SELFPAY | PROVIDERS: PCP Nurse Practitioner Family; Visit Provider Psychiatry & Neurology Neurology | DX: G47.33 Obstructive sleep apnea (adult) (pediatric) (principal) | CPT/HCPCS: 95806 ==

== ENCOUNTER 2024-07-20 06:57 | Outpatient (REF) | payer OTHER, SELFPAY ==
--- OUTSIDE RECORDS SUMMARY | 2024-07-20 07:00 | XMS_ITS | Clinical Summary ---
Author Organization [facility] Address [address] [place] [address] Phone Care Team Providers Care Supervisor [employer] Name Role Phone Scar Araiza NP Primary Care Provider [phone] Allergies Active Allergy Reactions Criticality Noted Date [...] patient's age to complete this topic Insurance [facility] Care Teams Supervisor [employer] Relationship Specialty Start Date End Date Scar Araiza NP [place] [address] PCP - General Nurse Practitioner 03/26/21
[2024-07-20 10:53] LABS: Anion Gap 12 (12-20); Blood Urea Nitrogen 17 mg/dL (9-16); Carbon Dioxide 29 mmol/L (22-29); Chloride 105 mmol/L (96-108); Estimated Glomerular Filt Rate > 60; Potassium 3.8 mmol/L (3.3-5.1); Sodium 142 mmol/L (135-145)
[2024-07-20 11:16] LABS: Creatinine Urine 54.66 mg/dL; Protein/Creatinine Ratio, Ur 0.26 (<0.2); Total Protein Urine Random 14 mg/dL (<12)
== END 2024-07-20 06:58 | disposition home or self-care (01) ==
LOC: HO.HMGCLDS 06:57
PROVIDERS: PCP Nurse Practitioner Family; Visit Provider Internal Medicine Nephrology
DX: I10 Essential (primary) hypertension (principal)
CPT/HCPCS: 36415; 80051; 82565; 82570; 84156; 84520

== ENCOUNTER 2024-07-28 08:58 | Outpatient (AMB) | payer OTHER, SELFPAY ==
--- OUTSIDE RECORDS SUMMARY | 2024-07-28 09:08 | XMS_ITS | Clinical Summary ---
Author Organization [facility] Address [address] [place] [address] Phone Care Team Providers Care Pharmacometrician Name Role Phone Scar Araiza NP Primary Care Provider [phone] Allergies Active Allergy Reactions Criticality Noted Date [...] patient's age to complete this topic Insurance [facility] Care Teams Pharmacometrician Relationship Specialty Start Date End Date Scar Araiza NP [facility] [place] [address] PCP - General Nurse Practitioner 03/26/21
--- NOTE | 2024-07-28 09:29 | HO.NEPHOV_ITS ---
Vital Signs 07/28/24 09:30 Height 5 ft 11 in Weight 234 lb 4 oz BMI 32.7 BP 122/54 L Blood Pressure Location Lt brachial Position Sitting Pulse 55 Pulse Source Pulse Oximeter Pulse Oximetry (%) 97 Oxygen Delivery Method Room Air Intake Visit Reasons: CKD/ Conf Barrel Filler Required: No Accompanied by: Self / Same As Patient Allergies codeine Allergy (Unknown, Verified 07/28/24 09:29) unknown naproxen Allergy (Unknown, Verified 07/28/24 09:29) rash, itching HPI Comments Details: Jaskaran was seen in the office in follow-up of his history proteinuria and hypertension. He has lost tremendous amount of weight by diet. His blood pressure is at goal and he has no detectable protein. His serum creatinine is normal now. He does not have any orthostatic symptoms. He does not have any chest pain, shortness of breath, paroxysmal nocturnal dyspnea, orthopnea, pedal edema, hematuria, flank pain, palpitations. He does not take excessive sodium in the diet and avoids nonsteroidal anti-inflammatories. He maintains good hydration. He is on Jardiance. He feels well. [facility] Medical History Morbid obesity Essential hypertension Surgical History Hx of cataract surgery History of carpal tunnel surgery H/O colonoscopy with polypectomy Family History Father Colon cancer Asthma Throat cancer Skin cancer Mother HTN (hypertension) Stroke Diabetes mellitus Sister No problems noted. Sister No problems noted. Social History Housing: House Do you presently have visiting nurse or other home services: No Alcohol intake: current Alcohol intake frequency: holidays/special occasions only Patient Tobacco Use Status: Former Tobacco user Tobacco use type: Cigarette Cigarettes Per Day: 3 e-Cigarette/Vaping Use: Never Used Second Hand Smoke Exposure: No service: No 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al status: employed 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 [employer] 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al exposures/hazards: No Cognitive needs: No Hearing needs: No Vision needs: No Review of Systems Const All systems reviewed & are unremarkable except as noted in HPI and below Physical Exam Vital Signs: Last Vital Signs Pulse 55 07/28/24 09:30 BP 122/54 L 07/28/24 09:30 Pulse Ox 97 07/28/24 09:30 Oxygen Delivery Method Room Air 07/28/24 09:30 BMI result Body Mass Index 32.7 Const General: comfortable and no acute distress Orientation/consciousness: patient oriented x3 HEENT Head: Yes normocephalic Mouth: Normal oral and palatal mucosa present Eyes EOM: EOMs intact bilaterally Neck Neck: Yes supple Resp Auscultation: clear to auscultation bilaterally Cardio Jugular venous distension: no JVD Rate: regular rate GI Palpation (GI): Soft to palpation Auscultation: normal bowel sounds General: Yes no CVA tenderness Back/Spine/Pelvis Back: no CVA tenderness Skin General skin exam: no rashes or lesions noted Neuro General: patient oriented x3 and moves all extremities Extrem General: Yes no pedal edema Results Reviewed Nephrology Results: Sodium 142 mmol/L (135-145) 07/20/24 Potassium 3.8 mmol/L (3.3-5.1) 07/20/24 Chloride 105 mmol/L (96-108) 07/20/24 Carbon Dioxide 29 mmol/L (22-29) 07/20/24 BUN 17 mg/dL (9-16) H 07/20/24 Creatinine 0.74 mg/dL (0.5-1.4) 07/20/24 Urine Creatinine 54.66 mg/dL 07/20/24 Protein/Creatinin Ratio 0.26 (<0.2) H 07/20/24 Assessment & Plan Assessment & Plan (1) Essential hypertension: Code(s): I10 - Essential (primary) hypertension Category: Medical (2) Proteinuria: Code(s): R80.9 - Proteinuria, unspecified Category: Medical Qualifiers: Proteinuria type: other Qualified Code(s): R80.8 - Other proteinuria Plan Jaskaran has hypertension at goal. He has lost significant amount of weight. His blood sugar is well controlled. He is tolerating current antihypertensive medications. He is on Jardiance. He maintains good hydration and avoid nonsteroidal anti-inflammatories. His serum potassium is normal on ASAD inhibitor. He avoids excessive sodium in the diet. I reiterated that if he continues to lose weight. I shall continue to work with him cut back on his antihypertensive medications. He has no significant protein in the urine. He is not known to have any retinopathy or LVH. I would not make any medication changes today. All these have been discussed in detail. Answered all questions. Follow-up appointment given. Orders: Orders Protein Creatinine Ratio, Ur 6 Months I10 - Essential (primary) hypertension, R80.8 - Other proteinuria Electrolytes 6 Months I10 - Essential (primary) hypertension, R80.8 - Other proteinuria Blood Urea Nitrogen 6 Months I10 - Essential (primary) hypertension, R80.8 - Other proteinuria Creatinine 6 Months I10 - Essential (primary) hypertension, R80.8 - Other proteinuria Coding Level of Care Code Est Pt Level 4 (15797) Diagnoses Essential hypertension I10 Other proteinuria R80.8 Proteinuria type: other
[2024-07-28 09:30] VITALS: BP 122/54; PULSE 55; O2SAT 97; BMI 32.7
== END 2024-07-28 09:51 | disposition home or self-care (01) ==
PROVIDERS: PCP Nurse Practitioner Family; Visit Provider Internal Medicine Nephrology
DX: I10 Essential (primary) hypertension (principal); R80.8 Other proteinuria
CPT/HCPCS: 99214

== ENCOUNTER → 2024-07-28 08:58 | Outpatient (BNVA) | payer OTHER, SELFPAY | PROVIDERS: PCP Nurse Practitioner Family; Visit Provider Internal Medicine Nephrology ==

== ENCOUNTER 2024-09-04 07:08 | Outpatient (REF) | payer OTHER, SELFPAY ==
[2024-09-04 11:44] LABS: MANUAL DIFF FLAG NO
[2024-09-04 11:50] LABS: Basophils Absolute Auto 0.1 X10*3/uL (0.0-0.2); Basophils Percent Auto 0.7 % (0-2); Eosinophils Absolute Auto 0.5 X10*3/uL (0.0-0.4); Eosinophils Percent Auto 6.6 % (0-4); Hematocrit 44.3 % (42.0-52.0); Hemoglobin 15.4 g/dl (14.0-18.0); Imm Gran Abs Auto 0.02 X10*3/uL (0.00-0.03); Imm Gran Pct Auto 0.3 % (0.0-0.4); Lymphocytes Absolute Auto 2.4 X10*3/uL (1.2-4.9); Mean Corpuscular HGB Conc 34.8 g/dl (31.0-36.0); Mean Corpuscular Hemoglobin 33.2 pg (27.0-33.0); Mean Corpuscular Volume 95.5 fL (80.0-98.0); Mean Platelet Volume 10.2 fL (9.4-12.4); Monocytes Absolute Auto 0.5 X10*3/uL (0.1-1.2); Monocytes Percent Auto 7.1 % (2-11); Neutrophils Absolute Auto 3.5 x10*3/uL (2.0-8.3); Neutrophils Percent Auto 50.3 % (45-73); Platelet Count 264 X10*3/uL (160-400); Red Blood Count 4.64 X10*6/uL (4.60-5.80); Red Cell Distribution Width 12.3 % (11.0-16.0)
[2024-09-04 11:51] LABS: Appearance Urine Clear; Color Urine Yellow; Glucose Urine UA 500 mg/dL (Negative); Leukocyte Esterase Urine Trace (Negative); Nitrite Urine Negative (Negative); PH 6.5 (5.0-9.0); Specific Gravity - Urine 1.015 (1.005-1.025); UMIC TRIGGER UACC YES; Urine Blood Negative (Negative); Urine Ketones Negative (Negative); Urine Protein Negative (Neg-Trace)
[2024-09-04 12:07] LABS: Alanine Aminotransferase 28 U/L (0-40); Albumin Level 4.1 g/dL (3.5-5.0); Alkaline Phosphatase 62 U/L (39-117); Anion Gap 12 (12-20); Aspartate Amino Transferase 30 U/L (5-37); Bilirubin Total 0.6 mg/dL (0.0-1.0); Blood Urea Nitrogen 23 mg/dL (9-16); Calcium 9.3 mg/dL (8.4-10.2); Carbon Dioxide 28 mmol/L (22-29); Chloride 105 mmol/L (96-108); Cholesterol 133 mg/dL (<200); Estimated Glomerular Filt Rate > 60; Glucose Fasting 102 mg/dL (60-99); HDL Cholesterol 43 mg/dL (>40); LDL Cholesterol Calculated 73 mg/dL (<100); Potassium 3.5 mmol/L (3.3-5.1); Sodium 141 mmol/L (135-145); Triglycerides 87 mg/dL (<150)
[2024-09-04 12:24] LABS: TSH reflex Free T4 1.71 uIU/mL (0.32-4.0)
[2024-09-04 12:27] LABS: Bacteria Urine None Seen (None Seen); Hyaline Casts Urine 0-2 /LPF (0-2); RBC Urine 0-2 /HPF (0-2); Squamous Epithelial Cell Urine 0-2 /HPF (0-2); WBC Urine 0-5 /HPF (0-5)
== END 2024-09-04 07:09 | disposition home or self-care (01) ==
LOC: HO.HMGCLDS 07:08
PROVIDERS: PCP Nurse Practitioner Family; Visit Provider Nurse Practitioner Family
DX: E11.9 Type 2 diabetes mellitus without complications (principal)
CPT/HCPCS: 36415; 80053; 80061; 81001; 81003; 84443; 85025

== ENCOUNTER → 2024-09-09 20:30 | Outpatient (REF) | payer OTHER, SELFPAY ==
--- OUTSIDE RECORDS SUMMARY | 2024-09-10 00:58 | XMS_ITS | Clinical Summary ---
Author Organization [facility] Address [address] [place] [address] Phone Care Team Providers Care Tip Puncher Name Role Phone Scar Araiza NP Primary Care Provider [phone] Allergies Active Allergy Reactions Criticality Noted Date [...] patient's age to complete this topic Insurance [facility] Care Teams Tip Puncher Relationship Specialty Start Date End Date Scar Araiza [place] [address] PCP - General Nurse Practitioner 03/26/21
== END ==
LOC: HO.SL 20:30
PROVIDERS: PCP Nurse Practitioner Family; Visit Provider Nurse Practitioner Family
DX: G47.34 Idiopathic sleep related nonobstructive alveolar hypoventilation (principal); G47.33 Obstructive sleep apnea (adult) (pediatric); Z99.89 Dependence on other enabling machines and devices
CPT/HCPCS: 95811

== ENCOUNTER 2024-09-17 07:48 | Outpatient (AMB) | payer OTHER, SELFPAY ==
--- OUTSIDE RECORDS SUMMARY | 2024-09-17 07:51 | XMS_ITS | Clinical Summary ---
Author Organization [facility] Address [address] [place] [address] Phone Care Team Providers Care Drafter (Cad) Electrical Name Role Phone Scar Araiza NP Primary Care Provider [phone] Allergies Active Allergy Reactions Criticality Noted Date [...] 10/28/2008 Obstructive sleep apnea syndrome 10/28/2008 Immunizations Immunization Administration Dates Next Due DT 06/25/2002 Pneumococcal [...] Colorectal Cancer Screening: Sigmoidoscopy 11/17/2008 Pneumococcal Vaccine: Peds ( 0 to 5 Years) and At-Risk Patients (6 to 49 Years) (2 of 2 - PCV) 11/13/2013 11/13/2012 Diabetes: Hemoglobin A1C 07/09/2020 Diabetes: Ophthalmology Exam 07/09/2020 Diabetes: Pedal Pulse Checked 07/09/2020 Diabetes: Sensory Foot Exam 07/09/2020 Diabetes: Visual Foot Exam 07/09/2020 Influenza Vaccine (Season Ended) 2025 Hepatitis B Vaccine Aged Out No longe r eligible based on patient's age to complete this topic Insurance [facility] Care Teams Drafter (Cad) Electrical Relationship Specialty Start Date End Date Scar Araiza NP [facility] [place] [address] PCP - General Nurse Practitioner 03/26/21
--- NOTE | 2024-09-17 08:01 | A.OFFVIS_ITS ---
Vital Signs 09/17/24 08:06 Height 5 ft 11 in Weight 232 lb BMI 32.4 BP 112/70 Blood Pressure Location Lt brachial Position Sitting Pulse 57 Pulse Source Pulse Oximeter Pulse Oximetry (%) 97 Oxygen Delivery Method Room Air Intake Visit Reasons: Follow Up 6mo Intake Note: Patient presents for follow up sleep study 07/06/24 Direct Support Staff Required: No Accompanied by: Self / Same As Patient Allergies codeine Allergy (Unknown, Verified 09/17/24 08:05) unknown naproxen Allergy (Unknown, Verified 09/17/24 08:05) rash, itching Medication List - Last Reconciled 09/17/24 by SANDEE Barnes aspirin 81 mg PO DAILY atorvastatin 20 mg PO BEDTIME chlorthalidone 25 mg PO DAILY FreeStyle Lancets (lancets) TID testing NS FreeStyle Lite Meter (blood-glucose meter) Tid testing NS FreeStyle Lite Strips (blood sugar diagnostic) TId testing NS Jardiance (empagliflozin) 10 mg PO DAILY NS lisinopril 40 mg PO DAILY nifedipine ER 60 mg PO BID omega-3 acid ethyl esters 2 caps PO BID sertraline 50 mg PO DAILY trazodone 50 mg PO BEDTIME HPI Comments Details: 63-year-old male presents for follow-up visit for follow-up of recent home sleep study to reassess status of sleep apnea. 07/06/2024 HST showed very mild sleep apnea with AHI 5 per hour, and O2 yan 79%, with average SpO2 91%, and SpO2 under 90% for 69 minutes and under 88% for 15 minutes of a 526 minute sleep study. Patient has undergone follow-up in-lab PAP titration study, last week. Results of which are pending. Patient wonders how long he will need to continue to use CPAP therapy. Pt endorses need to frequently clear his throat, occasional tobacco use. Hypertension has been well controlled. Patient denies typical nasal congestion, chest pain, shortness of breath. 03/10/2024, initial HPI: 63-yr-old male presents for new in-person patient visit for sleep consultation. Patient reports he was diagnosed w/ sleep apnea at least 5 yrs ago at [facility] by Dr Santiago. He was referred for in-lab sleep study as he had snoring, daytime sleepiness, and was kicking in his sleep. At the time of the PSG, he weighed 368lbs. He does not recall the severity of his sleep apnea and does not recall being told he had PLMS. He states he has slept well with his CPAP, and the leg movements subsided. Since, he has been compliant w/ CPAP. States he uses it nightly. He denies daytime sleepiness, which improved further after the weight loss. However, over the last year, he has had an intentional ~130-140 lb weight loss through diet and starting jardiance. So he wonders if he still does need to use CPAP tx. He walks a lot at work. He denies SOB, wheezing. He denies any recent leg movements or leg cramps from sleep. 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 His resp company is [employer] [facility] Medical History Morbid obesity Essential hypertension Surgical History Hx of cataract surgery History of carpal tunnel surgery H/O colonoscopy with polypectomy Family History Father Colon cancer Asthma Throat cancer Skin cancer Mother HTN (hypertension) Stroke Diabetes mellitus Sister No problems noted. Sister No problems noted. Social History Housing: House Do you presently have visiting nurse or other home services: No Alcohol intake: current Alcohol intake frequency: holidays/special occasions only Patient Tobacco Use Status: Former Tobacco user Tobacco use type: Cigarette Cigarettes Per Day: 3 e-Cigarette/Vaping Use: Never Used Second Hand Smoke Exposure: No service: No 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al status: employed 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 [employer] 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al exposures/hazards: No Cognitive needs: No Hearing needs: No Vision needs: No Physical Exam Vital Signs: Last Vital Signs Pulse 57 09/17/24 08:06 BP 112/70 09/17/24 08:06 Pulse Ox 97 09/17/24 08:06 Oxygen Delivery Method Room Air 09/17/24 08:06 BMI result Body Mass Index 32.4 Const General: no acute distress Orientation/consciousness: patient oriented x3 Resp Effort & Inspection: normal respiratory effort and able to speak in complete sentences Neuro General: patient oriented x3 Psych Mental Status: mental status grossly normal Speech and movement: Clear speech present Attitude: cooperative Assessment & Plan Assessment & Plan (1) JAVIER (obstructive sleep apnea): Code(s): G47.33 - Obstructive sleep apnea (adult) (pediatric) Category: Medical (2) Weight loss: Comment: Intentional Code(s): R63.4 - Abnormal weight loss Category: Medical (3) Periodic limb movements of sleep: Code(s): G47.61 - Periodic limb movement disorder Category: Medical Plan Reviewed results of interval home sleep study which showed very mild sleep apnea, however does show nocturnal hypoxemia. We will follow-up with patient, upon review of recent in-lab PAP titration study results. We will also request ENT consult for evaluation of possible alternate JAVIER treatment intervention/modalities-as patient would prefer to be able to stop CPAP. Monitor PLMS s/s- resolved after staring CPAP tx. Will follow-up upon review of above and patient to follow-up in clinic in 6 months or sooner prn. Orders: Referrals Ear/Nose/Throat Referral G47.33 - Obstructive sleep apnea (adult) (pediatric) Coding Level of Care Code Est Pt Level 3 (99667) Diagnoses JAVIER (obstructive sleep apnea) G47.33 Weight loss R63.4 Periodic limb movements of sleep G47.61
[2024-09-17 08:06] VITALS: BP 112/70; PULSE 57; O2SAT 97; BMI 32.4
== END 2024-09-17 08:44 | disposition home or self-care (01) ==
LOC: HO.HSMS 07:49
PROVIDERS: PCP Nurse Practitioner Family; Visit Provider Nurse Practitioner Family
DX: G47.33 Obstructive sleep apnea (adult) (pediatric) (principal); R63.4 Abnormal weight loss; G47.61 Periodic limb movement disorder
CPT/HCPCS: 99213

== ENCOUNTER 2024-09-20 07:43 | Outpatient (AMB) | payer OTHER, SELFPAY ==
--- OUTSIDE RECORDS SUMMARY | 2024-09-20 07:47 | XMS_ITS | Clinical Summary ---
Author Organization [facility] Address [address] [place] [address] Phone Care Team Providers Care Research And Development Director Name Role Phone Scar Araiza NP Primary Care Provider [phone] Allergies Active Allergy Reactions Criticality Noted Date [...] Colorectal Cancer Screening: Sigmoidoscopy 11/17/2008 Pneumococcal Vaccine: 50+ Ye ars (2 of 2 - PCV) 11/13/2013 11/13/2012 Diabetes: Hemoglobin A1C 07/09/2020 Diabetes: Ophthalmology Exam 07/09/2020 Diabetes: Pedal Pulse Checked 07/09/2020 Diabetes: Sensory Foot Exam 07/09/2020 Diabetes: Visual Foot Exam 07/09/2020 Influenza Vaccine (Season Ended) 2025 Pneumococcal Vaccine: Peds ( 0 to 5 Years) and At-Risk Patients (6 to 49 Years) Discontinued 11/13/2012 Hepatitis B Vaccine Aged Out No longe r eligible based on patient's age to complete this topic Insurance [facility] Care Teams Research And Development Director Relationship Specialty Start Date End Date Scar Araiza NP [address] [place] [address] PCP - General Nurse Practitioner 03/26/21
[2024-09-20 08:02] VITALS: BP 110/60; PULSE 61; O2SAT 98; BMI 30.7
--- NOTE | 2024-09-20 08:02 | A.OFFPC_ITS ---
Vital Signs 09/20/24 08:02 Height 5 ft 11 in Weight 220 lb BMI 30.7 BP 110/60 Blood Pressure Location Lt brachial Position Sitting Pulse 61 Pulse Source Pulse Oximeter Pulse Oximetry (%) 98 Oxygen Delivery Method Room Air Intake Visit Reasons: 6 months f/up Allergies codeine Allergy (Unknown, Verified 09/20/24 08:33) unknown naproxen Allergy (Unknown, Verified 09/20/24 08:33) rash, itching Medication List - Last Reconciled 09/20/24 by SANDEE Vargas- aspirin 81 mg PO DAILY atorvastatin 20 mg PO BEDTIME chlorthalidone 25 mg PO DAILY FreeStyle Lancets (lancets) TID testing NS FreeStyle Lite Meter (blood-glucose meter) Tid testing NS FreeStyle Lite Strips (blood sugar diagnostic) TId testing NS Jardiance (empagliflozin) 10 mg PO DAILY NS lisinopril 40 mg PO DAILY nifedipine ER 60 mg PO BID omega-3 acid ethyl esters 2 caps PO BID sertraline 50 mg PO DAILY sildenafil 25 mg PO DAILY PRN trazodone 50 mg PO BEDTIME Tobacco use date assessed: 09/20/24 Fall risk assessment: No Falls in past year Last assessed Fall Risk: 09/20/24 Dental Screening Dental Screen Date: 09/20/24 Did you have a dental visit in the last 12 months?: Yes Did you have a dental problem in the last 6 months where you did not have access to dental care?: No Was dental information given to patient?: Patient has dentist HPI 6 months f/up HPI Details Chief Complaint The patient presents for a follow-up regarding diabetes management. History of Present Illness The patient is a 63-year-old male presenting for a follow-up examination regarding his diabetes management. His diabetes appears well-controlled based on a HbA1c reading of 5.3%, and he reports adherence to both medication and lifes tyle interventions, including a new exercise routine leading to weight loss. Importantly, he denies neuropathy, polyuria, and polydipsia, indicating no acute diabetic complications. There is a longtime history of smoking spanning 22 years at a rate of one pack per day. Social History - Exercise: Recently started an exercise routine. - Smoking: History of smoking 1 pack per day for approximately 22 years. - Weight Management: Efforts to lose brittany ght through exercise and dietary management. Health Maintenance - Comprehensive eye exam is current and up-to-date. - Discussed smoking cessation and recomm ended referral to a low-dose CT scan program for lung evaluation. Review of Systems - Endocrine: Denies polyuria, denies gagan ydipsia - Neurological: Denies neuropathy - Respiratory: Denies recent respiratory symptoms Physical Exam General: Cooperative, healthy appearing, comfortable, no acute distress and well developed Orientation: Patient oriented x3 Limitations: No limitations Head: Normal to inspection Ears: Hearing grossly normal bilaterally Nose: Normal external nose present Face and sinus: Normal facial exam Eyes: Appearance normal, both eyes and all related structures Neck: Normal visual inspection and Yes full ROM Respiratory: Normal respiratory effort and able to speak in complete sentences. Clear to auscultation bilaterally Cardiovascular: Regular rate and rhythm. Normal S1 and S2 GI: Normal to inspection. Soft to palpation and nontender Neuro: Patient oriented x3 Extremities: Normal to inspection, + sensation with use of monofilament, intact, onychomycosis noted to bilat big toe nails Results - Labs: Hemoglobin A1c noted at 5.3% Plan 1. 3%. Continued adherence to his medica tion and exercise routine is advised. Due to his smoking history, a referral was made for a low-dose CT scan to evaluate his lung health. A full physical examination is scheduled for later this month for ongoing assessment.: Discussion Notes During this visit, we discussed the excellent management of the patient?s diabetes with an HbA1c reading of 5.3%. I emphasized the importance of continuing his current regimen, including diet, exercise, and medication monitoring under my supervision. We discussed the implications of his smoking history and the preventive potential of a low-dose CAT scan for evaluating lung health. Plans were set for a comprehensive physical towards the end of the month for further evaluation. Consent for these discussed interventions was obtained, and the patient is advised on follow-up criteria and ongoing health supervision. Patient Instructions - Continue medications as prescribed for diabetes management. - Maintain exercise routine and healthy diet for weight management. - Undergo a low-dose CAT scan as referre d for lung evaluation. - Return at the end of the month for a f ull physical examination. - Contact the office with any new sympto ms or concerns. [facility] Medical History Morbid obesity Essential hypertension Surgical History Hx of cataract surgery History of carpal tunnel surgery H/O colonoscopy with polypectomy Family History Father Colon cancer Asthma Throat cancer Skin cancer Mother HTN (hypertension) Stroke Diabetes mellitus Sister No problems noted. Sister No problems noted. Social History Housing: House Do you presently have visiting nurse or other home services: No Alcohol intake: current Alcohol intake frequency: holidays/special occasions only Patient Tobacco Use Status: Former Tobacco user Tobacco use type: Cigarette Cigarettes Per Day: 3 e-Cigarette/Vaping Use: Never Used Second Hand Smoke Exposure: No service: No 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al status: employed 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al exposures/hazards: No Cognitive needs: No Hearing needs: No Vision needs: No Questionnaire PHQ-9 Over the last 2 weeks, how often have you been bothered by any of the following problems? 1. Little interest or pleasure in doing things: not at all 2. Feeling down, depressed, or hopeless: not at all 3. Trouble falling or staying asleep, or sleeping too much: not at all 4. Feeling tired or having little energy: not at all 5. Poor appetite or overeating: not at all 6. Feeling bad about yourself - or that you are a failure or have let yourself or your family down: not at all 7. Trouble concentrating on things, such as reading the newspaper or watching television: not at all 8. Moving or speaking so slowly that other people could have noticed. Or the opposite - being so fidgety or restless that you have been moving around a lot more than usual: not at all 9. Thoughts that you would be better off or of hurting yourself in some way: not at all Total score: 0 Depression Screening Interpretation: Negative Depression Screening Done: Yes 99804 - PHQ-9 Billing: Yes Source: Developed by Drs. Ben Monroe, Paulina Carballo, Rm Broussard and colleagues, with an educational daryl from [employer]. Thrive Questionnaire Date Thrive assessed: 09/20/24 I am a: Patient What is your living situation today?: I have a steady place to live Within the past 12 months, did the food you bought not last and you didn't have the money to get more?: Never true Within the past 12 months, did you worry whether your food would run out before you got money to buy more?: Never true Do you have trouble paying for medicines?: No Do you have trouble getting transportation to medical appointments?: No Do you have trouble paying your heating and electricity bill?: No Do you have trouble taking care of your child, family member or friend?: No Do you have trouble with day-to-day activities such as bathing, preparing meals, shopping, managing finances, etc.?: No Are you currently unemployed and looking for a job?: No Are you interested in more education?: No Please select the resources that you would like help with: None Currently or been in a relationship where the following occur: No concerns rep orted THRIVE Score: 0 AUDIT C Alcohol Use Questionnaire (AUDIT-C) 1. How often do you have a drink containing alcohol?: Monthly or less 2. How many drinks containing alcohol do you have on a typical day when you are drinking?: 1 or 2 3. How often do you have six or more drinks on one occasion?: Never Total Score: 1 Score Reviewed/Action Taken: Yes ERASMO-7 AMB Questionnaire ERASMO-7 Date ERASMO - 7 assessed: 09/20/24 Feeling nervous, anxious, or on edge: 0 = Not at all Not being able to stop or control worryin = Not at all Worrying too much about different things: 0 = Not at all Trouble relaxin = Not at all Being so restless that it is hard to sit still: 0 = Not at all Becoming easily annoyed or irritable: 0 = Not at all Feeling afraid as if something awful might happen: 0 = Not at all Total ERASMO-7 score (0-4 normal; 5-9 mild; 10-14 moderate; 15-21 severe): 0 Source: Developed by Drs. Ben Monroe, Paulina Carballo, Rm Broussard and colleagues, with an educational daryl from [employer]. ERASMO-7 Assessment Billing ERASMO-7 Assessment Tool: ERASMO-7 Assessment 93361 Physical exam (Primary Care) Vital Signs: Last Vital Signs Pulse 61 09/20/24 08:02 BP 110/60 09/20/24 08:02 Pulse Ox 98 09/20/24 08:02 Oxygen Delivery Method Room Air 09/20/24 08:02 BMI result Body Mass Index 30.7 Tobacco/Smoking Status: Tobacco use Status Tobacco use date assessed 09/20/24 09/20/24 08:03 Patient Tobacco Use Status Former Tobacco user 09/20/24 08:03 Tobacco use type Cigarette 09/20/24 08:03 e-Cigarette/Vaping Use Never Used 09/20/24 08:03 PHQ-9: PHQ-9 Score PHQ-9: Total score 0 09/20/24 08:10 Depression Screening Interpretation: Negative Thrive Assessment: Date of Thrive Assessment Date Thrive assessed 09/20/24 09/20/24 08:03 Currently or been in a relationship where the following occur: No concerns reported Results AMB Hemoglobin A1c AMB Hemoglobin A1c 5.3 % Last Edit by Bassem Angelo CMA on 09/20/24 08: 27 Results Reviewed Results Reviewed: Laboratory Last Values Hgb A1c (Clinic) 5.3 % (4.0-6.0) 09/20/24 08:11 Coding Level of Care Code Est Pt Level 3 (38943) Diagnoses Smoker F17.200 Diabetes E11.9 Screening PSA (prostate specific antigen) Z12.5 Additional Codes ERASMO-7 Assessment Billing - ERASMO-7 Assessment Tool: ERASMO-7 Assessment 90182 ([id number]) PHQ-9 - 20093 - PHQ-9 Billing: Yes ([id number]) Assessment & Plan Assessment & Plan (1) Smoker: Code(s): F17.200 - Nicotine dependence, unspecified, uncomplicated Category: Social Hx (2) Diabetes: Code(s): E11.9 - Type 2 diabetes mellitus without complications Category: Medical (3) Screening PSA (prostate specific antigen): Code(s): Z12.5 - Encounter for screening for malignant neoplasm of prostate Category: Medical Plan . Orders: Orders AMB Hemoglobin A1c Today Z13.9 - Encounter for screening, unspecified Complete Blood Count Auto Diff Today E11.9 - Type 2 diabetes mellitus without complications, F17.200 - Nicotine dependence, unspecified, uncomplicated Prostate Specific Antigen Scr Today Z12.5 - Encounter for screening for malignant neoplasm of prostate Comprehensive [place]. Panel Fast Today E11.9 - Type 2 diabetes mellitus without complications, F17.200 - Nicotine dependence, unspecified, uncomplicated TSH reflex Free T4 Today E11.9 - Type 2 diabetes mellitus without complications, F17.200 - Nicotine dependence, unspecified, uncomplicated UA CC w/rflx Micro + Cult Today E11.9 - Type 2 diabetes mellitus without complications, F17.200 - Nicotine dependence, unspecified, uncomplicated Lipid Panel Today E11.9 - Type 2 diabetes mellitus without complications, F17.200 - Nicotine dependence, unspecified, uncomplicated Referrals Lung Cancer Screening Referral F17.200 - Nicotine dependence, unspecified, uncomplicated Medications: New sildenafil administer 30 minutes to 4 hours before activity 25 mg PO DAILY PRN 14 tabs 0RF sexual activity
== END 2024-09-20 09:30 | disposition home or self-care (01) ==
LOC: HO.HMCC 07:44
PROVIDERS: PCP Nurse Practitioner Family; Visit Provider Nurse Practitioner Family
DX: F17.200 Nicotine dependence, unspecified, uncomplicated (principal); E11.9 Type 2 diabetes mellitus without complications; Z12.5 Encounter for screening for malignant neoplasm of prostate; Z13.9 Encounter for screening, unspecified

== ENCOUNTER → 2024-09-20 07:43 | Outpatient (BNVA) | payer OTHER, SELFPAY | PROVIDERS: PCP Nurse Practitioner Family; Visit Provider Nurse Practitioner Family | DX: E11.9 Type 2 diabetes mellitus without complications (principal); Z87.891 Personal history of nicotine dependence | CPT/HCPCS: 83036; 96127 ==

== ENCOUNTER 2024-09-30 07:41 | Outpatient (AMB) | payer OTHER, SELFPAY ==
--- OUTSIDE RECORDS SUMMARY | 2024-09-30 07:45 | XMS_ITS | Clinical Summary ---
Author Organization [facility] Address [address] [place] [address] Phone Care Team Providers Care Lens Hardener Name Role Phone Scar Araiza NP Primary Care Provider [phone] Allergies Active Allergy Reactions Criticality Noted Date [...] patient's age to complete this topic Insurance [facility] Care Teams Lens Hardener Relationship Specialty Start Date End Date Scar Araiza NP 1962 [place] [address] PCP - General Nurse Practitioner 03/26/21
[2024-09-30 07:49] VITALS: BP 112/60; PULSE 57; RESP 16; TEMP 36.7; O2SAT 97; BMI 31.7
--- NOTE | 2024-09-30 07:49 | A.OFFPC_ITS ---
Vital Signs 09/30/24 07:49 Height 5 ft 11 in Weight 227 lb BMI 31.7 BP 112/60 Blood Pressure Location Lt brachial Position Sitting Respiration 16 Pulse 57 Pulse Source Pulse Oximeter Temp 98.1 F Temp Source Oral Pulse Oximetry (%) 97 Oxygen Delivery Method Room Air Intake Visit Reasons: Annual PE Intake Note: Pt is here today for his PE Allergies codeine Allergy (Unknown, Verified 09/30/24 07:53) unknown naproxen Allergy (Unknown, Verified 09/30/24 07:53) rash, itching Medication List - Last Reconciled 09/30/24 by Scar Araiza, [facility]- aspirin 81 mg PO DAILY atorvastatin 20 mg PO BEDTIME chlorthalidone 25 mg PO DAILY FreeStyle Lancets (lancets) TID testing NS FreeStyle Lite Meter (blood-glucose meter) Tid testing NS FreeStyle Lite Strips (blood sugar diagnostic) TId testing NS Jardiance (empagliflozin) 10 mg PO DAILY NS lisinopril 40 mg PO DAILY nifedipine ER 60 mg PO BID omega-3 acid ethyl esters 2 caps PO BID sertraline 50 mg PO DAILY sildenafil 25 mg PO DAILY PRN trazodone 50 mg PO BEDTIME Tobacco use date assessed: 09/30/24 Dental Screening Dental Screen Date: 09/30/24 Did you have a dental visit in the last 12 months?: Yes Did you have a dental problem in the last 6 months where you did not have access to dental care?: No Was dental information given to patient?: Patient has dentist HPI Annual PE HPI Details History of Present Illness The patient is a 63-year-old male presenting for a routine physical examination. He is under the care of multiple specialists: a stores despatch hand, with whom a repeat colonoscopy is scheduled for November; a frame pulley mortising machine operator; a neurologist/sleep physician; and a high voltage electrician. Labs are ordered, and he is aware of the fasting requirement prior to testing. He denied increases in shortness of breath, chest pain, abdominal pain, blood in stool, constipation, diarrhea, and any suicidal or homicidal ideations. The preventive care regimen includes planned screenings and evaluations by specialists to manage and monitor his health status. Health Maintenance - Colonoscopy scheduled in November - Routine lab tests ordered with instruc tion for fasting -declined LENIN -declined vaccinations Social History Review of Systems - Respiratory: Denies increased shortnes s of breath - Cardiovascular: Denies chest pain - Gastrointestinal: Denies abdominal martha n, blood in stool, constipation, and diarrhea - Psychiatric: Denies suicidal ideation and homicidal ideation -denies any urinary issues. Physical Exam General: Cooperative, healthy appearing, comfortable, no acute distress and well developed Orientation: Patient oriented x3 Limitations: No limitations Head: Normal to inspection Ears: Hearing grossly normal bilaterally Nose: Normal external nose present Face and sinus: Normal facial exam Eyes: Appearance normal, both eyes and all related structures Neck: Normal visual inspection and Yes full ROM Respiratory: Normal respiratory effort and able to speak in complete sentences. Clear to auscultation bilaterally Cardiovascular: Regular rate and rhythm. Normal S1 and S2 GI: Normal to inspection. Soft to palpation and nontender : no signs of hernias Skin: No rashes or lesions noted Neuro: Patient oriented x3 Extremities: Normal to inspection Results Plan We confirmed the colonoscopy due in November as part of his cancer screening. Fasting instructions for routine labs were also noted by the patient. Continued follow-up with all relevant specialists is essential for his ongoing health management. Discussion Notes I discussed with him the importance of undergoing the scheduled colonoscopy to aid in colorectal cancer screening. The necessity of fasting before his routine lab tests was reviewed and acknowledged. Follow-up care involves maintaining regular appointments with all specialists to ensure comprehensive monitoring and management of his health. The importance of these steps was emphasized to ensure proactive health maintenance. Patient Instructions - Attend scheduled colonoscopy in November - Follow fasting instructions for upcomi ng routine labs - Continue regular follow-ups with gastr oenterologist, frame pulley mortising machine operator, neurologist/sleep medicine provider, and high voltage electrician [facility] Medical History Morbid obesity Essential hypertension Surgical History Hx of cataract surgery History of carpal tunnel surgery H/O colonoscopy with polypectomy Family History Father Colon cancer Asthma Throat cancer Skin cancer Mother HTN (hypertension) Stroke Diabetes mellitus Sister No problems noted. Sister No problems noted. Social History Housing: House Do you presently have visiting nurse or other home services: No Alcohol intake: current Alcohol intake frequency: holidays/special occasions only Patient Tobacco Use Status: Current everyday Tobacco user Tobacco use type: Cigarette Cigarettes Per Day: 3 e-Cigarette/Vaping Use: Never Used Second Hand Smoke Exposure: No service: No 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al status: employed 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: [employer] 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al exposures/hazards: No Cognitive needs: No Hearing needs: No Vision needs: No Questionnaire Thrive Questionnaire Date Thrive assessed: 09/13/24 I am a: Patient What is your living situation today?: I have a steady place to live Within the past 12 months, did the food you bought not last and you didn't have the money to get more?: Never true Within the past 12 months, did you worry whether your food would run out before you got money to buy more?: Never true Do you have trouble paying for medicines?: No Do you have trouble getting transportation to medical appointments?: No Do you have trouble paying your heating and electricity bill?: No Do you have trouble taking care of your child, family member or friend?: No Do you have trouble with day-to-day activities such as bathing, preparing meals, shopping, managing finances, etc.?: No Are you currently unemployed and looking for a job?: No Are you interested in more education?: No Please select the resources that you would like help with: None Currently or been in a relationship where the following occur: No concerns reported THRIVE Score: 0 ERASMO-7 AMB Questionnaire ERASMO-7 Date ERASMO - 7 assessed: 09/20/24 Source: Developed by Drs. Ben Monroe, Paulina Carballo, Rm Broussard and colleagues, with an educational daryl from [employer]. Physical exam (Primary Care) Vital Signs: Last Vital Signs Temp 98.1 F 09/30/24 07:49 Pulse 57 09/30/24 07:49 Resp 16 09/30/24 07:49 BP 112/60 09/30/24 07:49 Pulse Ox 97 09/30/24 07:49 Oxygen Delivery Method Room Air 09/30/24 07:49 BMI result Body Mass Index 31.7 Tobacco/Smoking Status: Tobacco use Status Tobacco use date assessed 09/30/24 09/30/24 07:54 Patient Tobacco Use Status Current everyday Tobacco 09/30/24 08:06 Tobacco use type Cigarette 09/30/24 07:50 e-Cigarette/Vaping Use Never Used 09/30/24 07:50 Thrive Assessment: Date of Thrive Assessment Date Thrive assessed 09/13/24 09/30/24 07:50 Currently or been in a relationship where the following occur: No concerns reported Coding Level of Care Code Est Pt Prev Care 40-64y(40915) Diagnoses Microalbuminuria R80.9 Physical exam Z00.00 Assessment & Plan Assessment & Plan (1) Microalbuminuria: Code(s): R80.9 - Proteinuria, unspecified Category: Medical (2) Physical exam: Code(s): Z00.00 - Encounter for general adult medical examination without abnormal findings Category: Medical Plan . Orders: Orders Microalbumin, Random (w Creat) Today R80.9 - Proteinuria, unspecified
== END 2024-09-30 09:05 | disposition home or self-care (01) ==
LOC: HO.HMCC 07:42
PROVIDERS: PCP Nurse Practitioner Family; Visit Provider Nurse Practitioner Family
DX: R80.9 Proteinuria, unspecified (principal); Z00.00 Encounter for general adult medical examination without abnormal findings

== ENCOUNTER → 2024-09-30 07:41 | Outpatient (BNVA) | payer OTHER, SELFPAY | PROVIDERS: PCP Nurse Practitioner Family; Visit Provider Nurse Practitioner Family | DX: Z13.89 Encounter for screening for other disorder (principal) ==

== ENCOUNTER 2024-11-26 10:45 | Day surgery (SDC) | payer OTHER, SELFPAY ==
--- OUTSIDE RECORDS SUMMARY | 2024-10-11 08:00 | XMS_ITS | Clinical Summary ---
Author Organization [facility] Address [address] [place] [address] Phone Care Team Providers Care Splicing Machine Operator Name Role Phone Scar Araiza NP Primary Care Provider [phone] Allergies Active Allergy Reactions Criticality Noted Date [...] patient's age to complete this topic Insurance [facility] Care Teams Splicing Machine Operator Relationship Specialty Start Date End Date Scar Araiza NP [address] [place] [address] PCP - General Nurse Practitioner 03/26/21
--- NOTE | 2024-11-25 10:18 | P.CONAN_ITS ---
Documented by User: Aicha Lin NP 11/25/24 10:21 HPI - Anesthesia Eval Consult details Narrative: 64yo M for Colonoscopy Follows [facility] Cardiology for CAD, bradycardia. Stable and asymptomatic with significant weight loss at yearly routine visit 06/2024 Anesthesia Pre-Procedure Meds Is the patient on any of the following meds?: SGLT2 Inhib PMFSH Active Problems Active Problems: All Active Problems Tubular adenoma of colon (Acute) Nicotine dependence, cigarettes, uncomplicated (Acute) Proteinuria (Acute) Nocturnal hypoxemia (Acute) Periodic limb movements of sleep (Acute) Weight loss (Acute) Right knee pain (Acute) Depression (Acute) Obesity (BMI 30-39.9) (Acute) Abnormal stress electrocardiogram test using treadmill (Acute) Coronary artery disease (Acute) High triglycerides (Acute) Shortness of breath (Acute) Abnormal stress test (Acute) JAVIER (obstructive sleep apnea) (Acute) Essential hypertension (Acute) Sinus bradycardia (Acute) First degree heart block (Acute) Microalbuminuria (Acute) Systolic murmur (Acute) Skin lesion (Acute) Diabetes (Acute) Past Medical History Medical History (Updated 11/04/24 @ 14:49 by Thu Barrett PA-C) Tubular adenoma of colon Diabetes Nicotine dependence, cigarettes, uncomplicated Essential hypertension Family History Family History Father Colon cancer Asthma Throat cancer Skin cancer Mother HTN (hypertension) Stroke Diabetes mellitus Sister No problems noted. Sister No problems noted. Surgical History Surgical History (Updated 11/04/24 @ 14:47 by Thu Barrett PA-C) History of cardiac radiofrequency ablation (RFA) History of colonoscopy Hx of cataract surgery History of carpal tunnel surgery Social History Social History Housing: House Do you presently have visiting nurse or other home services: No Alcohol intake: current Alcohol intake frequency: holidays/special occasions only Patient Tobacco Use Status: Current everyday Tobacco user Tobacco use type: Cigarette Cigarettes Per Day: 3 e-Cigarette/Vaping Use: Never Used Second Hand Smoke Exposure: No Advance Directives: No Advance Directives Information Provided: Yes service: No 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al status: employed 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 [employer] 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al exposures/hazards: No Cognitive needs: No Hearing needs: No Vision needs: No Meds Allergies Allergy/AdvReac Type Severity Reaction Status Date / Time codeine Allergy Unknown unknown Verified 09/30/24 07:53 naproxen Allergy Unknown rash, Verified 09/30/24 07:53 itching Home Medications ?Medication ?Instructions ?Recorded ?Confirmed ?Last Taken ?Type aspirin 81 mg tablet,delayed 81 mg PO DAILY 12/13/22 0 09/30/24 Unknown History release Exam Pertinent Lab Results Pertinent Lab Results: Laboratory Tests 09/04/24 07:28 WBC 7.0 Hgb 15.4 Hct 44.3 Plt Count 264 Sodium 141 Potassium 3.5 Chloride 105 Carbon Dioxide 28 BUN 23 H Creatinine 0.76 Narrative Narrative: EKG 06/2024 Details: EKG with underlying sinus rhythm at 64/Min; rightward axis but not clear if it was lead reversal rather; nonspecific ST-T changes. Normal ID and corrected QT. Per cardiac note 06/2024 Echocardiogram with LVEF of 65-70% and otherwise unremarkable. In the stress test, he was able to exercise on Pankaj protocol for only 3 minutes and 40 seconds. Reached 53% of target heart rate and stopped due to fatigue. Subsequently, stopped clonidine/Atenolol. Coronary CT-essentially [id number] CAD and nothing hemodynamically significant. 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 Additionally, myocardial bridging in 1st and 3rd diagonal branches but no significant obstruction. Assessment and Plan Assessment Anesthesia Assessment: Chart Reviewed Documented by User: Deisy Ross MD 11/26/24 11:03 [facility] Past Medical History Medical History (Updated 11/04/24 @ 14:49 by Thu Barrett PA-C) Tubular adenoma of colon Diabetes Nicotine dependence, cigarettes, uncomplicated Essential hypertension Family History Family History Father Colon cancer Asthma Throat cancer Skin cancer Mother HTN (hypertension) Stroke Diabetes mellitus Sister No problems noted. Sister No problems noted. Family history of problems with anesthesia: No Surgical History Surgical History (Updated 11/04/24 @ 14:47 by Thu Barrett PA-C) History of cardiac radiofrequency ablation (RFA) History of colonoscopy Hx of cataract surgery History of carpal tunnel surgery History of Problems with Anesthesia: No Social History Social History Housing: House Do you presently have visiting nurse or other home services: No Alcohol intake: current Alcohol intake frequency: holidays/special occasions only Patient Tobacco Use Status: Current everyday Tobacco user Tobacco use type: Cigarette Cigarettes Per Day: 3 e-Cigarette/Vaping Use: Never Used Second Hand Smoke Exposure: No Advance Directives: No Advance Directives Information Provided: Yes service: No 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al status: employed 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 [employer] 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al exposures/hazards: No Cognitive needs: No Hearing needs: No Vision needs: No Meds Allergies Allergy/AdvReac Type Severity Reaction Status Date / Time codeine Allergy Unknown unknown Verified 09/30/24 07:53 naproxen Allergy Unknown rash, Verified 09/30/24 07:53 itching Home Medications ?Medication ?Instructions ?Recorded ?Confirmed ?Last Taken ?Type aspirin 81 mg tablet,delayed 81 mg PO DAILY 12/13/22 0 09/30/24 Unknown History release Exam Airway Mallampati Class: I TM Dist: >3cm Neck ROM: Full Denture: Upper Heart: rrr Lungs: wheezes b/l Assessment and Plan Assessment Anesthesia Assessment: Anesthesia Plan Discussed Final Anesthetic Review Family History of Problems with Anesthesia: No History of Problems with Anesthesia: No NPO: Yes ASA Class: III Final Preanesthetic Review: No Changes in Pt Med Stat, Meds/Allgs Chart Reviewed and Consent Obtained/Reviewed Patient Risk: Intermediate Procedure Risk: Low Anesthetic Plan Anesthetic Plan: MAC: Disposition: Standard PACU
[2024-11-26 10:53] VITALS: BMI 30.7
[2024-11-26 11:06] LABS: Glucose, Whole Blood 114 mg/dL (60-115)
[2024-11-26] MEDS: Albuterol/Iprat 2.5/0.5MG 3 ML AMPUL.NEB INHALE (11:06)
--- NOTE | 2024-11-26 11:07 | MHC.SHP ---
Pre-Procedural Eval Section A - 24 Hr Update-Section A only Date of Service: 11/26/24 The patient is an INPATIENT: No The patient has been examined within 24 hours of the surgical procedure. The History & Physical has been completed within 30 days and I have reviewed it.: No Section B - Complete if H&P > 30 days Chief Complaint: Surveillance for colon polyps Relevant Family History (Specify if Yes): Yes Relevant Social History: Tobacco Use Present Medications: see Short Stay Collaborative assessment Medical History: Significant History (Hypertension) History of Previous Operations: Relevant previous surgery/procedure and date(s) (Hx of cataract surgery History of carpal tunnel surgery H/O colonoscopy with polypectomy) Allergies: Allergies Allergy/AdvReac Type Severity Reaction Status Date / Time codeine Allergy Unknown unknown Verified 09/30/24 07:53 naproxen Allergy Unknown rash, Verified 09/30/24 07:53 itching Review of Systems Sugical H&P ROS: Negative: Constitution, Cardiovascular, Respiratory and Gastrointestinal Exam Surgical H&P Exam: Normal: Heart, Normal: Lungs, Normal: Extremities and Normal: Abdomen Plan Diagnosis/Plan: Change (Proceed with colonoscopy for follow-up of colon polyps.) I have reviewed the history and physical and performed a pertinent physical examination on my patient. No changes have occurred unless specified. Time Spent With Patient Time: Total time managing care of this patient today ____ minutes.
[2024-11-26] MEDS: Lactated Ringers 1,000 ML 100 ML IVCONT (11:13)
[2024-11-26 11:14] VITALS: BP 130/58; PULSE 74; RESP 16; TEMP 36.5; O2SAT 96
--- NOTE | 2024-11-26 13:01 | P.OPN-COLO_ITS ---
Colonoscopy Operative Note Operative Note Date of Service: 11/26/24 Narrative: COLONOSCOPY TILL CECUM WITH SNARE POLYPECTOMY AND HEMOCLIP PLACEMENT Pre-op diagnosis: Surveillance for colon polyps. Post-op diagnosis:? Colon polyps, Diverticulosis, hemorrhoids Endoscopist:? Sandy Collins MD Anesthesia:?MAC Consent: Indications for the procedure and potential complications of bleeding, perforation, reaction to medications and missed diagnosis were discussed with the patient and informed consent was obtained. Instrument: Olympus PCF H 190 L variable stiffness pediatric colonoscope Monitoring: Vital signs and clinical assessment, intermittent blood pressure monitoring, continuous EKG monitoring, Pulse oximetry and Carbon Dioxide monitoring were done throughout the procedure. Please see anesthesia flowsheet. Colon withdrawl time was 40 minutes. Procedure: The patient was placed in the left lateral decubitis position and pre-procedure medications were administered. After a digital rectal examination of the ano-rectum, the video colonoscope was inserted into the rectum and advanced through the colon to the cecum. The colonoscope was slowly withdrawn in a retrograde panoramic fashion and the colon mucosa was carefully examined including a retroflexed view of the rectum. Findings and interventions are described below. Procedure Difficulty: without difficulty Findings: Terminal Ileum: Not evaluated Cecum: Normal Ascending Colon: Polypectomy site visualized at 95 cms and two 4-5 mm polyps at the margins of the polypectomy site- removed with a hot snare. Transverse Colon: Two 8 to 10 mm sessile polyps - removed with a stiff hot snare. One of the polypectomy sites was closed with 1 hemoclip Descending Colon: Normal Sigmoid Colon: Two 8 to 12 mm sessile polyps - removed with a stiff hot snare. One of the polypectomy sites was closed with 1 hemoclip. Moderate diverticulosis Rectum: A 4-5 mm sessile polyp - removed with a cold snare Ano-rectum: Small internal hemorrhoids Colon preparation: Good after copious irrigation. [place] Bowel Preparation Scale Right colon; 2 Transverse colon: 2 Left colon; 2 (0 = Unprepared colon segment with mucosa not seen due to solid stool that cannot be cleared. 1 = Portion of mucosa of the colon segment seen, but other areas of the colon segment not well seen due to staining, residual stool and/or opaque liquid. 2 = Minor amount of residual staining, small fragments of stool and/or opaque liquid, but mucosa of colon segment seen well. 3 = Entire mucosa of colon segment seen well with no residual staining, small fragments of stool or opaque liquid) Impression and Post Procedure Diagnosis: Colonoscopy Findings: Six small to medium sized polyps were removed Moderate diverticulosis seen in the sigmoid colon Small hemorrhoids on retroflexed exam. Plan: Pt has a FU appointment on 04/08/25 with Antonieta Moscoso NP Repeat Colonoscopy in 3-5 years if polyps are adenomatous and due to history of adenomatous colon polyps. Above findings were reviewed with the patient and relevant handouts were given and the discharge area.
[2024-11-26 13:03] VITALS: BP 99/54; PULSE 59; RESP 16; TEMP 36.5; O2SAT 98
[2024-11-26 13:18] VITALS: BP 110/56; PULSE 59; RESP 18; TEMP 36.6; O2SAT 98
== END 2024-11-26 13:54 | disposition home or self-care (01) ==
PROVIDERS: PCP Nurse Practitioner Family; Visit Provider Internal Medicine Gastroenterology
PROC: 0DJD8ZZ Inspection of Lower Intestinal Tract, Via Natural or Artificial Opening Endoscopic (ICD-10-PCS; CPT 45378; principal; 2024-11-26 12:30)
DX: Z12.11 Encounter for screening for malignant neoplasm of colon (principal); D12.3 Benign neoplasm of transverse colon; D12.5 Benign neoplasm of sigmoid colon; Z80.0 Family history of malignant neoplasm of digestive organs; Z86.0101 Personal history of adenomatous and serrated colon polyps; E11.9 Type 2 diabetes mellitus without complications; I10 Essential (primary) hypertension; G47.33 Obstructive sleep apnea (adult) (pediatric); Z99.89 Dependence on other enabling machines and devices; F17.210 Nicotine dependence, cigarettes, uncomplicated
CPT/HCPCS: 45385; 82947; 88305; J2003; J2704

== ENCOUNTER → 2024-11-26 10:45 | Outpatient (BNV) | payer OTHER, SELFPAY | PROVIDERS: PCP Nurse Practitioner Family; Visit Provider Internal Medicine Gastroenterology | DX: Z12.11 Encounter for screening for malignant neoplasm of colon (principal); D12.2 Benign neoplasm of ascending colon; D12.3 Benign neoplasm of transverse colon; D12.5 Benign neoplasm of sigmoid colon; D12.8 Benign neoplasm of rectum; K57.30 Diverticulosis of large intestine without perforation or abscess without bleeding; K64.8 Other hemorrhoids | CPT/HCPCS: 45385 ==

== ENCOUNTER 2024-12-24 09:50 | Outpatient (AMB) | payer OTHER, SELFPAY ==
--- NOTE | 2024-12-24 07:41 | A.OFFVIS_ITS ---
Intake Visit Reasons: Current Smoker Allergies codeine Allergy (Unknown, Verified 09/30/24 07:53) unknown naproxen Allergy (Unknown, Verified 09/30/24 07:53) rash, itching HPI HPI Current Smoker: Details: Initial visit for this 64yo smoker with a 25+PYH. Patient started smoking at age 16 for 28 years at 1ppd. Quit for a period of 20 years Cut back to 12-14cig/day over last year or so. . Denies marijuana use. Denies second hand smoke exposure. 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 . Denies known family history of lung cancer. Denies personal history of cancers. Denies chest CT in last year. . Denies recent travel outside the [place]. Denies recent respiratory illness or recent hospitalization for respiratory issues. Denies testing positive for COVID x 2. Denies receiving COVID Vaccine. . Denies fever, chills, new/worsening cough, hemoptysis, hoarseness or dysphagia. Denies significant chest pain, significant dyspnea or unintentional weight loss. Patient Lung Cancer Screening Questionnaire reviewed with patient by provider. . Shared Decision Making Completed. Patient meets criteria. Discussed in detail with patient, the risk vs benefit of LDCT screening. Patient consents to proceed with scan. Discussed smoking cessation. He is working to cut down and quit on own. [facility] Medical History (Updated 12/24/24 @ 07:41 by Thu Barrett PA-C) JAVIER (obstructive sleep apnea) Tubular adenoma of colon Diabetes Nicotine dependence, cigarettes, uncomplicated Essential hypertension Surgical History (Updated 11/04/24 @ 14:47 by Thu Barrett PA-C) History of cardiac radiofrequency ablation (RFA) History of colonoscopy Hx of cataract surgery History of carpal tunnel surgery Family History Father Colon cancer Asthma Throat cancer Skin cancer Mother HTN (hypertension) Stroke Diabetes mellitus Sister No problems noted. Sister No problems noted. 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 [employer] 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al exposures/hazards: No Cognitive needs: No Hearing needs: No Vision needs: No Assessment & Plan Assessment & Plan (1) Nicotine dependence, cigarettes, uncomplicated: Code(s): F17.210 - Nicotine dependence, cigarettes, uncomplicated Category: Medical Plan: - SDM visit completed today in office. - Patient meets criteria for LDCT for lung cancer screening purposes and is asymptomatic. - Smoking cessation counseling offered. Patients can always call [phone]. - Will arrange for a LDCT scan of the chest for screening purposes at [facility]. - Risks, benefits, and alternatives were discussed in detail and the patient agrees to proceed. - Risks discussed include but are not limited to: radiation exposure, anxiety during testing and while awaiting results, false negatives, false positives and possibility of additional intervention such as further imaging or surgical procedures for benign disease. - Benefits are obviously detection of lung cancer at an early stage which can lead to improved outcomes. - Discussed the importance of screening program compliance with adherence to yearly LDCT scan as scheduled - or sooner interval scans for personalized screening regimen. - Discussed follow up plan. Our office will send a letter discussing results and if needed set up phone call and office visit based on CT findings. - Patient educated on results categorization and the management decisions for suspicious findings potentially found on the screening LDCT scan. Any patient with a Lung RADS score of 3 or 4 will be reviewed by a multidisciplinary team at [facility] to form a plan of action in regards to scan findings. - If further work up is warranted for a suspicious lung finding this will be followed by the Lung Cancer Screening program in conjunction with the Thoracic Surgery Department at [facility]. - A copy of the office note and LDCT will be sent to the patient's PCP - as well as documentation on any associated further plans of care. - Incidental findings on LDCT are the PCP's responsibility. These findings are indicated with an S finding on the LDCT Assessment. A note discussing the findings will be sent to the PCP who is then responsible for further management. - All questions answered.? Coding Level of Care Code Lung Cancer Screening G0296 Diagnoses Nicotine dependence, cigarettes, uncomplicated F17.210
--- OUTSIDE RECORDS SUMMARY | 2024-12-24 10:03 | XMS_ITS | Clinical Summary ---
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 Name Role Phone Scar Araiza NP Primary Care Provider [phone] Allergies Active Allergy Reactions Criticality Noted Date [...] Visual Foot Exam 07/09/2020 Influenza Vaccine (#1) 2025 Pneumococcal Vaccine: Peds ( 0 to 5 Years) and At-Risk Patients (6 to 49 Years) Discontinued 11/13/2012 Hepatitis B Vaccine Aged Out No longe r eligible based on patient's age to complete this topic Insurance [facility] Care Teams Middle School Teacher Relationship Specialty Start Date End Date Scar Araiza NP 1962 [place] [address] PCP - General Nurse Practitioner 03/26/21
== END 2024-12-24 10:07 | disposition home or self-care (01) ==
LOC: HO.HPS 09:51
PROVIDERS: PCP Nurse Practitioner Family; Referring Provider Nurse Practitioner Family; Visit Provider Physician Assistant Medical
DX: F17.210 Nicotine dependence, cigarettes, uncomplicated (principal)
CPT/HCPCS: G0296

== ENCOUNTER 2024-12-24 10:01 | Outpatient (REF) | payer OTHER, SELFPAY ==
--- NOTE | ~2024-12-24 | CT_ITS ---
CLINICAL HISTORY: F17.210 - Nicotine dependence, cigarettes, uncomplicated CT lung cancer screening (LDCT) Comparison: None provided Technique: Axial CT images of the chest using low-dose technique. Referring provider counseled the patient on shared decision-making for LDCT screening. Additional counseling was provided on smoking cessation. Effective radiation dose total: DLP 60.8 mGycm, CTDIvol 1.7 mGy. Findings: No pulmonary nodules are noted. There is mild coronary artery calcification. Limited upper abdomen: Unremarkable Other: None Impression: LungRADS 1: Negative exam. Continue annual screening with low dose Chest CT in 12 months. ##L1# Category 1: Normal; continue annual screening Category 2: Benign appearance or behavior, continue annual screening Category 3: Probably benign, [address] recommended Category 4A: Suspicious, [address] recommended; may consider PET/CT Category 4B: Suspicious, Additional diagnostics and/or tissue sampling recommended Category 4X: Suspicious, Additional diagnostics and/or tissue sampling recommended Category 0: Recalls (incomplete screen due to Incomplete coverage, Noise, Respiratory motion, Expiration, Obscured by acute abnormality) This document has been electronically signed by: Elieser Templeton MD on 12/24/2024 12:57:55
== END 2024-12-24 10:02 | disposition home or self-care (01) ==
LOC: HO.CT 10:01
PROVIDERS: PCP Nurse Practitioner Family; Visit Provider Physician Assistant Medical
DX: Z12.2 Encounter for screening for malignant neoplasm of respiratory organs (principal); F17.210 Nicotine dependence, cigarettes, uncomplicated
CPT/HCPCS: 71271; G0296

== ENCOUNTER → 2024-12-24 10:03 | Outpatient (BNV) | payer OTHER, SELFPAY | PROVIDERS: PCP Nurse Practitioner Family; Visit Provider Radiology Diagnostic Radiology | DX: F17.210 Nicotine dependence, cigarettes, uncomplicated (principal) | CPT/HCPCS: 71271 ==

== ENCOUNTER 2025-01-22 07:25 | Outpatient (REF) | payer OTHER, SELFPAY ==
[2025-01-22 11:29] LABS: MANUAL DIFF FLAG NO
[2025-01-22 11:31] LABS: Appearance Urine Clear; Glucose Urine UA 250 mg/dL (Negative); PH 6.5 (5.0-9.0); Specific Gravity - Urine 1.015 (1.005-1.025)
[2025-01-22 11:35] LABS: Hematocrit 43.3 % (42.0-52.0); Hemoglobin 15.1 g/dl (14.0-18.0); Imm Gran Abs Auto 0.01 X10*3/uL (0.00-0.03); Imm Gran Pct Auto 0.1 % (0.0-0.4); Lymphocytes Absolute Auto 2.4 X10*3/uL (1.2-4.9); Mean Corpuscular HGB Conc 34.9 g/dl (31.0-36.0); Mean Corpuscular Hemoglobin 33.7 pg (27.0-33.0); Mean Corpuscular Volume 96.7 fL (80.0-98.0); NRBC Abs Auto 0.000 X10*3/uL (0.0-0.012); NRBC Pct Auto 0.0 /100WBC (0.0-0.2); Platelet Count 250 X10*3/uL (160-400); Red Blood Count 4.48 X10*6/uL (4.60-5.80); White Blood Count 6.8 X10*3/uL (4.8-10.8)
[2025-01-22 11:52] LABS: Alanine Aminotransferase 25 U/L (0-40); Albumin Level 4.4 g/dL (3.5-5.0); Alkaline Phosphatase 62 U/L (39-117); Anion Gap 13 (12-20); Aspartate Amino Transferase 29 U/L (5-37); Blood Urea Nitrogen 19 mg/dL (9-16); Calcium 9.6 mg/dL (8.4-10.2); Carbon Dioxide 29 mmol/L (22-29); Chloride 104 mmol/L (96-108); Cholesterol 132 mg/dL (<200); Estimated Glomerular Filt Rate > 60; HDL Cholesterol 44 mg/dL (>40); Potassium 4.1 mmol/L (3.3-5.1); Sodium 142 mmol/L (135-145); Total Protein 7.3 g/dL (6.5-8.0); Triglycerides 89 mg/dL (<150)
== END 2025-01-22 07:26 | disposition home or self-care (01) ==
LOC: HO.HMGCLDS 07:25
PROVIDERS: PCP Nurse Practitioner Family; Referring Provider Internal Medicine Nephrology; Visit Provider Nurse Practitioner Family
DX: I10 Essential (primary) hypertension (principal); E11.9 Type 2 diabetes mellitus without complications; R80.9 Proteinuria, unspecified; F17.200 Nicotine dependence, unspecified, uncomplicated; Z12.5 Encounter for screening for malignant neoplasm of prostate
CPT/HCPCS: 36415; 80053; 80061; 81003; 82570; 84153; 84443; 85025

== ENCOUNTER 2025-01-26 09:24 | Outpatient (AMB) | payer OTHER, SELFPAY ==
--- NOTE | 2025-01-26 09:33 | HO.NEPHOV ---
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 He has lost tremendous amount of weight by diet. His blood pressure is at goal and he has no detectable protein. His serum creatinine is normal now. He does not have any orthostatic symptoms. He does not have any chest pain, shortness of breath, paroxysmal nocturnal dyspnea, orthopnea, pedal edema, hematuria, flank pain, palpitations. He does not take excessive sodium in the diet and avoids nonsteroidal anti-inflammatories. He maintains good hydration. He is on Jardiance. He feels well. [facility] Medical History (Updated 12/24/24 @ 07:41 by Thu Barrett PA-C) JAVIER (obstructive sleep apnea) Tubular adenoma of colon Diabetes Nicotine dependence, cigarettes, uncomplicated Essential hypertension Surgical History History of cardiac radiofrequency ablation (RFA) History of colonoscopy Hx of cataract surgery History of carpal tunnel surgery Family History Father Colon cancer Asthma Throat cancer Skin cancer Mother HTN (hypertension) Stroke Diabetes mellitus Sister No problems noted. Sister No problems noted. 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 [email or web address] 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al exposures/hazards: No Cognitive needs: No Hearing needs: No Vision needs: No Review of Systems Const All systems reviewed & are unremarkable except as noted in HPI and below Physical Exam Vital Signs: Last Vital Signs Pulse 57 01/26/25 09:34 BP 122/50 L 01/26/25 09:34 Pulse Ox 98 01/26/25 09:34 Oxygen Delivery Method Room Air 01/26/25 09:34 BMI result Body Mass Index 31.3 Const General: comfortable and no acute distress Orientation/consciousness: patient oriented x3 HEENT Head: Yes normocephalic Mouth: Normal oral and palatal mucosa present Eyes EOM: EOMs intact bilaterally Neck Neck: Yes supple Resp Auscultation: clear to auscultation bilaterally Cardio Jugular venous distension: no JVD Rate: regular rate GI Palpation (GI): Soft to palpation Auscultation: normal bowel sounds General: Yes no CVA tenderness Back/Spine/Pelvis Back: no CVA tenderness Skin General skin exam: no rashes or lesions noted Neuro General: patient oriented x3 and moves all extremities Extrem General: Yes no pedal edema Results Reviewed Nephrology Results: Hgb, (14.0-18.0) 15.1 g/dl 01/22/25 WBC, (4.8-10.8) 6.8 X10*3/uL 01/22/25 Plt Count, (160-400) 250 X10*3/uL 01/22/25 Sodium, (135-145) 142 mmol/L 01/22/25 Potassium, (3.3-5.1) 4.1 mmol/L 01/22/25 Chloride, (96-108) 104 mmol/L 01/22/25 Carbon Dioxide, (22-29) 29 mmol/L 01/22/25 BUN, (9-16) 19 mg/dL H 01/22/25 Creatinine, (0.5-1.4) 0.80 mg/dL 01/22/25 Calcium, (8.4-10.2) 9.6 mg/dL 01/22/25 Urine Protein, (Neg-Trace) Negative mg/dL 01/22/25 Urine Creatinine 63.22 mg/dL 01/22/25 Assessment & Plan Assessment & Plan (1) Essential hypertension: Code(s): I10 - Essential (primary) hypertension Category: Medical Plan Jaskaran has hypertension at goal. He has lost significant amount of weight. His blood sugar is well controlled. He is tolerating current antihypertensive medications. He is on Jardiance. He maintains good hydration and avoid nonsteroidal anti-inflammatories. His serum potassium is normal on ASAD inhibitor. He avoids excessive sodium in the diet. I reiterated that if he continues to lose weight. I shall continue to work with him cut back on his antihypertensive medications. He has no significant protein in the urine. He is not known to have any retinopathy or LVH. I would not make any medication changes today. All these have been discussed in detail. Answered all questions. Orders: Orders Creatinine 6 Months I10 - Essential (primary) hypertension Blood Urea Nitrogen 6 Months I10 - Essential (primary) hypertension Electrolytes 6 Months I10 - Essential (primary) hypertension Protein Creatinine Ratio, Ur 6 Months I10 - Essential (primary) hypertension Coding Level of Care Code Est Pt Level 4 (78644) Diagnoses Essential hypertension I10
[2025-01-26 09:34] VITALS: BP 122/50; PULSE 57; O2SAT 98; BMI 31.3
--- OUTSIDE RECORDS SUMMARY | 2025-01-26 10:08 | XMS_ITS | Clinical Summary ---
Author Organization [facility] Address [address] [place] [address] Phone Care Team Providers Care Sap Plant Maintenance Consultant Name Role Phone Scar Araiza NP Primary Care Provider [phone] Allergies Active Allergy Reactions Criticality Noted Date [...] patient's age to complete this topic Insurance [facility] Care Teams Sap Plant Maintenance Consultant Relationship Specialty Start Date End Date Scar Araiza NP [address] [place] [address] PCP - General Nurse Practitioner 03/26/21
== END 2025-01-26 10:02 | disposition home or self-care (01) ==
LOC: HO.HKA 09:25
PROVIDERS: PCP Nurse Practitioner Family; Visit Provider Internal Medicine Nephrology
DX: I10 Essential (primary) hypertension (principal)
CPT/HCPCS: 99214

== ENCOUNTER 2025-01-31 12:06 | Outpatient (AMB) | payer OTHER, SELFPAY ==
--- NOTE | 2025-01-31 12:13 | MHC.PC.OV ---
Vital Signs 01/31/25 12:17 Height 5 ft 11 in Weight 219 lb BMI 30.5 BP 122/50 L Blood Pressure Location Lt brachial Position Sitting Pulse 57 Pulse Source Pulse Oximeter Pulse Oximetry (%) 97 Oxygen Delivery Method Room Air Intake Visit Reasons: 4m follow up Intake Note: pt is here for DM follow up, a1c done in office today, patient states he stopped baby aspirin for 2/3 months due to bruising on hand Allergies codeine Allergy (Unknown, Verified 01/31/25 12:49) unknown naproxen Allergy (Unknown, Verified 01/31/25 12:49) rash, itching Medication List - Last Reconciled 01/31/25 by SANDEE Vargas- atorvastatin 20 mg PO BEDTIME chlorthalidone 25 mg PO DAILY FreeStyle Lancets (lancets) TID testing NS FreeStyle Lite Meter (blood-glucose meter) Tid testing NS FreeStyle Lite Strips (blood sugar diagnostic) TId testing NS Jardiance (empagliflozin) 10 mg PO DAILY NS lisinopril 40 mg PO DAILY nifedipine ER 60 mg PO BID omega-3 acid ethyl esters 2 caps PO BID sertraline 50 mg PO DAILY sildenafil 25 mg PO DAILY PRN trazodone 50 mg PO BEDTIME Tobacco use date assessed: 09/30/24 Fall risk assessment: No Falls in past year Last assessed Fall Risk: 01/31/25 Dental Screening Dental Screen Date: 09/30/24 HPI 4m follow up HPI Details Chief Complaint The patient presents for follow-up regarding diabetes management. History of Present Illness The patient is a 64-year-old male presenting with follow-up for diabetes management. His hemoglobin A1c is 5.4, indicating excellent glycemic control. He has been actively managing his diet, engaging in regular exercise, and has experienced weight loss. The patient has a history of a faint systolic murmur with a noted right carotid bruit. An ultrasound has been planned to further evaluate this finding. He reports no chest pain, increased dyspnea, headaches, dizziness, or blurred vision. The patient has onychomycosis affecting his toenails bilaterally. He continues to follow up with his professor of archaeology and edge bander hand for ongoing care. Social History - Exercise: Engages in regular physical activity - Diet: Actively managing dietary intake Health Maintenance - Preventative care: Declined vaccinations Review of Systems - Cardiovascular: Denies chest pain, dizziness - Respiratory: Denies increased dyspnea - Neurological: Denies headaches, blurred vision, -denies any polyuria, polydisia, neuropathy Physical Exam General: Cooperative, healthy appearing, comfortable, no acute distress and well developed Orientation: Patient oriented x3 Limitations: No limitations Head: Normal to inspection Ears: Hearing grossly normal bilaterally Nose: Normal external nose present Face and sinus: Normal facial exam Eyes: Appearance normal, both eyes and all related structures Neck: Normal visual inspection and Yes full ROM Respiratory: Some scattered expiratory wheezes noted Cardiovascular: Regular rate and rhythm. Normal S1 and S2, faint systolic murmur noted, ? faint carotid bruit (right) GI: Normal to inspection. Soft to palpation and nontender Skin: No rashes or lesions noted Neuro: Patient oriented x3 Extremities: Positive sensation with use of monofilament bilaterally at lower extremities, feet were intact bilaterally, onychomycosis noted on big toenails bilaterally Results - Labs: Hemoglobin A1c at 5.4 Plan The patient will continue his current diabetes management plan, which includes dietary modifications and regular exercise, given his excellent glycemic control with an A1c of 5.4. An ultrasound of the carotid artery is planned to further investigate the noted faint right carotid bruit. The patient is advised to maintain follow-up appointments with his professor of archaeology and edge bander hand to monitor his cardiovascular and renal health. Patient was informed and verbally consented to the use of an ambient scribe for clinic note documentation during this visit. Discussion Notes I discussed with the patient the importance of continuing his current diabetes management plan, emphasizing the positive impact of his dietary and exercise regimen on his A1c levels. We also talked about the need for an ultrasound to assess the carotid artery due to the detected systolic murmur and right carotid bruit. The patient was reminded to keep his appointments with his professor of archaeology and edge bander hand for ongoing care. Patient Instructions - Continue with your current diet and exercise routine to maintain good blood sugar control. - Schedule and attend the ultrasound appointment for your carotid artery. - Keep regular follow-up appointments with your professor of archaeology and edge bander hand. [facility] Medical History JAVIER (obstructive sleep apnea) Tubular adenoma of colon Diabetes Nicotine dependence, cigarettes, uncomplicated Essential hypertension Surgical History History of cardiac radiofrequency ablation (RFA) History of colonoscopy Hx of cataract surgery History of carpal tunnel surgery Family History Father Colon cancer Asthma Throat cancer Skin cancer Mother HTN (hypertension) Stroke Diabetes mellitus Sister No problems noted. Sister No problems noted. 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 [employer] 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al exposures/hazards: No Cognitive needs: No Hearing needs: No Vision needs: No Questionnaire Thrive Questionnaire Date Thrive assessed: 09/13/24 I am a: Patient What is your living situation today?: I have a steady place to live Within the past 12 months, did the food you bought not last and you didn't have the money to get more?: Never true Within the past 12 months, did you worry whether your food would run out before you got money to buy more?: Never true Do you have trouble paying for medicines?: No Do you have trouble getting transportation to medical appointments?: No Do you have trouble paying your heating and electricity bill?: No Do you have trouble taking care of your child, family member or friend?: No Do you have trouble with day-to-day activities such as bathing, preparing meals, shopping, managing finances, etc.?: No Are you currently unemployed and looking for a job?: No Are you interested in more education?: No Please select the resources that you would like help with: None Currently or been in a relationship where the following occur: No concerns reported THRIVE Score: 0 ERASMO-7 AMB Questionnaire ERASMO-7 Date ERASMO - 7 assessed: 09/20/24 Source: Developed by Drs. Ben Monroe, Paulina Carballo, Rm Broussard and colleagues, with an educational daryl from [employer]. Physical exam (Primary Care) Vital Signs: Last Vital Signs Pulse 57 01/31/25 12:17 BP 122/50 L 01/31/25 12:17 Pulse Ox 97 01/31/25 12:17 Oxygen Delivery Method Room Air 01/31/25 12:17 BMI result Body Mass Index 30.5 Tobacco/Smoking Status: Tobacco use Status Tobacco use date assessed 09/30/24 01/31/25 12:14 Patient Tobacco Use Status Current someday Tobacco 01/31/25 12:14 Tobacco use type Cigarette 01/31/25 12:14 e-Cigarette/Vaping Use Never Used 01/31/25 12:14 Thrive Assessment: Date of Thrive Assessment Date Thrive assessed 09/13/24 01/31/25 12:14 Currently or been in a relationship where the following occur: No concerns reported Results AMB Hemoglobin A1c AMB Hemoglobin A1c 5.4 % Last Edit by Bassem Angelo CMA on 01/31/25 12:36 Results Reviewed Results Reviewed: Laboratory Last Values Hgb A1c (Clinic) 5.4 % (4.0-6.0) 01/31/25 12:13 Coding Level of Care Code Est Pt Level 3 (55702) Diagnoses Right carotid bruit R09.89 Diabetes E11.9 Assessment & Plan Assessment & Plan (1) Right carotid bruit: Code(s): R09.89 - Other specified symptoms and signs involving the circulatory and respiratory systems Category: Medical (2) Diabetes: Code(s): E11.9 - Type 2 diabetes mellitus without complications Category: Medical Plan . Orders: Orders AMB Hemoglobin A1c Today Z13.9 - Encounter for screening, unspecified US carotid duplex BI Today R09.89 - Other specified symptoms and signs involving the circulatory and respiratory systems
[2025-01-31 12:17] VITALS: BP 122/50; PULSE 57; O2SAT 97; BMI 30.5
--- OUTSIDE RECORDS SUMMARY | 2025-01-31 13:28 | XMS_ITS | Clinical Summary ---
Author Organization [facility] Address [address] [place] [address] Phone Care Team Providers Care Proposal Consultant Name Role Phone Scar Araiza NP Primary Care Provider [phone] Allergies Active Allergy Reactions Criticality Noted Date [...] patient's age to complete this topic Insurance [facility] Care Teams Proposal Consultant Relationship Specialty Start Date End Date Scar Araiza NP [address] [place] [address] PCP - General Nurse Practitioner 03/26/21
== END 2025-01-31 12:45 | disposition home or self-care (01) ==
LOC: HO.HMCC 12:07
PROVIDERS: PCP Nurse Practitioner Family; Visit Provider Nurse Practitioner Family
DX: R09.89 Other specified symptoms and signs involving the circulatory and respiratory systems (principal); E11.9 Type 2 diabetes mellitus without complications; Z13.9 Encounter for screening, unspecified

== ENCOUNTER → 2025-01-31 12:06 | Outpatient (BNVA) | payer OTHER, SELFPAY | PROVIDERS: PCP Nurse Practitioner Family; Visit Provider Nurse Practitioner Family | DX: E11.9 Type 2 diabetes mellitus without complications (principal); R09.89 Other specified symptoms and signs involving the circulatory and respiratory systems | CPT/HCPCS: 83036 ==

== ENCOUNTER 2025-04-01 07:53 | Outpatient (AMB) | payer OTHER, SELFPAY ==
--- OUTSIDE RECORDS SUMMARY | 2025-04-01 07:56 | XMS_ITS | Clinical Summary ---
Author Organization [facility] Address [address] [place] [address] Phone Care Team Providers Care Fuel Cell Test Engineer Name Role Phone Scar Araiza NP Primary Care Provider [phone] Allergies Active Allergy Reactions Criticality Noted Date [...] age to complete this topic Insurance [facility] Care Teams Fuel Cell Test Engineer Relationship Specialty Start Date End Date Scar Araiza NP [address] [place] [address] PCP - General Nurse Practitioner 03/26/21
[2025-04-01 08:04] VITALS: BP 130/60; PULSE 52; O2SAT 98
--- NOTE | 2025-04-01 08:04 | A.OFFVIS_ITS ---
Vital Signs 04/01/25 08:04 Height 5 ft 11 in Weight 215 lb BMI 30.0 BP 130/60 Blood Pressure Location Rt brachial Position Sitting Pulse 52 Pulse Source Pulse Oximeter Pulse Oximetry (%) 98 Intake Visit Reasons: 6 mo follow up Intake Note: Patient presents for follow up sleep study 07/06/24 Fitness Technician Required: No Accompanied by: Self / Same As Patient Allergies codeine Allergy (Unknown, Verified 04/01/25 08:08) unknown naproxen Allergy (Unknown, Verified 04/01/25 08:08) rash, itching Medication List - Last Reconciled 04/01/25 by SANDEE Barnes atorvastatin 20 mg PO BEDTIME chlorthalidone 25 mg PO DAILY FreeStyle Lancets (lancets) TID testing NS FreeStyle Lite Meter (blood-glucose meter) Tid testing NS FreeStyle Lite Strips (blood sugar diagnostic) TId testing NS Jardiance (empagliflozin) 10 mg PO DAILY NS lisinopril 40 mg PO DAILY nifedipine ER 60 mg PO BID omega-3 acid ethyl esters 2 caps PO BID sertraline 50 mg PO DAILY sildenafil 25 mg PO DAILY PRN trazodone 50 mg PO BEDTIME HPI Comments Details: 04/01/2025, HPI: 64-year-old male presents for follow-up visit for obstructive sleep apnea, nocturnal hypoxemia in the setting of HTN, HLD, diabetes. Denies any significant interval medical history changes, though he is still intentionally trying to lose weight. 09/09/2024, in-lab PAP titration PSG: Showed resolution of snoring, and optimization of obstructive sleep apnea and nocturnal hypoxemia on CPAP 4-9 cm H2O, with overall AHI 0.2 and O2 yan 87%, however average SpO2 was 93% and SpO2 was less than 88% for 0.5 minutes of study time. After the in-lab PAP titration sleep study, a new order was sent to [facility] for CPAP 9 cm H2O. Patient had reported that this was his prior respiratory home care company. Unfortunately, he has not heard from them yet. He does not have an active [employer] air view account. He states his current [employer] machine is proximally 3 years old, but he is not sure who paid for this. He is currently pain for his own CPAP supplies [id number]. He states he continues to sleep well with the CPAP machine. However, he does not know his current settings. He does not look at the CPAP machine in the morning, so is unaware if the machine gives him any warnings. He reports he cleans his CPAP supplies regularly, however uses tap water in his CPAP water reservoir. He denies any bothersome limb movements of sleep, though notes that tends to move his feet, which is not bothersome to him. He did bring his CPAP into the clinic today, though not the power cord: Demetri, [id number] 09/17/2024, HPI: 07/06/2024 HST showed very mild sleep apnea with AHI 5 per hour, and O2 yan 79%, with average SpO2 91%, and SpO2 under 90% for 69 minutes and under 88% for 15 minutes of a 526 minute sleep study. Patient has undergone follow-up in-lab PAP titration study, last week. Results of which are pending. Patient wonders how long he will need to continue to use CPAP therapy. Pt endorses need to frequently clear his throat, occasional tobacco use. Hypertension has been well controlled. Patient denies typical nasal congestion, chest pain, shortness of breath. 03/10/2024, initial HPI: 63-yr-old male presents for new in-person patient visit for sleep consultation. Patient reports he was diagnosed w/ sleep apnea at least 5 yrs ago at [facility] by Dr Santiago. He was referred for in-lab sleep study as he had snoring, daytime sleepiness, and was kicking in his sleep. At the time of the PSG, he weighed 368lbs. He does not recall the severity of his sleep apnea and does not recall being told he had PLMS. He states he has slept well with his CPAP, and the leg movements subsided. Since, he has been compliant w/ CPAP. States he uses it nightly. He denies daytime sleepiness, which improved further after the weight loss. However, over the last year, he has had an intentional ~130-140 lb weight loss through diet and starting jardiance. So he wonders if he still does need to use CPAP tx. He walks a lot at work. He denies SOB, wheezing. He denies any recent leg movements or leg cramps from sleep. 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 His resp company is [email or web address]. [facility] Medical History JAVIER (obstructive sleep apnea) Tubular adenoma of colon Diabetes Nicotine dependence, cigarettes, uncomplicated Essential hypertension Surgical History History of cardiac radiofrequency ablation (RFA) History of colonoscopy Hx of cataract surgery History of carpal tunnel surgery Family History Father Colon cancer Asthma Throat cancer Skin cancer Mother HTN (hypertension) Stroke Diabetes mellitus Sister No problems noted. Sister No problems noted. 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 [employer] 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al exposures/hazards: No Cognitive needs: No Hearing needs: No Vision needs: No Physical Exam Vital Signs: Last Vital Signs Pulse 52 04/01/25 08:04 BP 130/60 04/01/25 08:04 Pulse Ox 98 04/01/25 08:04 BMI result Body Mass Index 30.0 Const General: no acute distress Orientation/consciousness: patient oriented x3 Resp Effort & Inspection: normal respiratory effort and able to speak in complete sentences Neuro General: patient oriented x3 Psych Mental Status: mental status grossly normal Speech and movement: Clear speech present Attitude: cooperative Assessment & Plan Assessment & Plan (1) JAVIER (obstructive sleep apnea): Comment: Mild with marked nocturnal hypoxemia Code(s): G47.33 - Obstructive sleep apnea (adult) (pediatric) Category: Medical (2) Weight loss: Comment: Intentional Code(s): R63.4 - Abnormal weight loss Category: Medical (3) Periodic limb movements of sleep: Code(s): G47.61 - Periodic limb movement disorder Category: Medical Plan For JAVIER: Reviewed the results of the interval in-lab PAP titration sleep study, which showed significant improvement in sleep apnea, nocturnal hypoxemia, and snoring. Though his obstructive sleep apnea is mild with an AHI of 5 per hour, this should be managed with PAP therapy due to comorbidities of HLD, diabetes, and nocturnal hypoxemia. We will follow up on the previous order for CPAP 9 cm H2O sent to [facility]. Continue current CPAP, until [facility] can adjust his CPAP settings to CPAP 9 cmH2O w/ EPR set to need. * Use CPAP nightly > 4 hours. * Clean CPAP machine and supplies routinely. * Change CPAP supplies routinely. * Advised to use distilled water in CPAP water reservoir. * Pt to contact us or respiratory company with any questions or concerns. ENT consult as ordered- for evaluation of possible alternate JAVIER treatment intervention/modalities. Monitor PLMS s/s- resolved after staring CPAP tx. Pt to follow-up in 12 months or sooner prn. Coding Level of Care Code Est Pt Level 3 (80172) Diagnoses JAVIER (obstructive sleep apnea) G47.33 Weight loss R63.4 Periodic limb movements of sleep G47.61
== END 2025-04-01 08:37 | disposition home or self-care (01) ==
LOC: HO.HSMS 07:53
PROVIDERS: PCP Nurse Practitioner Family; Visit Provider Nurse Practitioner Family
DX: G47.33 Obstructive sleep apnea (adult) (pediatric) (principal); R63.4 Abnormal weight loss; G47.61 Periodic limb movement disorder
CPT/HCPCS: 99213